=== PATIENT | female | born 1955 | race Caucasian/White ===

== ENCOUNTER → 2016-12-11 | Day surgery (SDC) | payer OTHER ==
[2016-12-03 13:19] VITALS: BMI 29.0
[~2016-12-11] VITALS: Ht 165.1 cm; Wt 79.5 kg
[~2016-12-11] MED LIST: CETI10TA84 PO; CHOL1TAB42 PO; DEXL30CA5 PO; DOMPERIDONE 10MG PO; HYDR-3124 PO; LACT10CA3 PO; MONT1TAB5 PO; PYRI100T4 PO; SODIUM CHLORIDE 0.9% 500ML 500 ML IV ONE
[2016-12-11 11:23] VITALS: Ht 165.1 cm; Wt 79.5 kg
--- NOTE | 2016-12-11 12:22 | Endo History and Physical ---
History & Physical Date of Service: Dec 11, 2016. Chief Complaint: ESOPHAGEAL VARICES Referring Physician: DR. CALDWELL History of Present Illness 61 yo CF who presents for EGD secondary to esophageal varices. Past Surgical History Hx Cardiac Surgery: No Hx Internal Defibrillator: No Hx Pacemaker: No Hx Abdominal Surgery: Yes (JIN) Hx of Implantable Prosthesis: No Hx Post-Op Nausea and Vomiting: Yes Hx Cancer Surgery: No Hx Thoracic Surgery: Yes (TUMOR REMOVAL FROM RT LUNG (BENIGN)) Hx Orthopedic: No Hx Urinary Tract Surgery: No Family History None Social History Smoking Status: Never Smoker Hx Substance Use: No Hx Alcohol Use: No Allergies Coded Allergies: Amoxicillin (Verified Allergy, Unknown, "BAD FOR LIVER BECAUSE I HAVE LIVER PROBLEMS", 12/03/16) Clavulanic Acid (Verified Allergy, Unknown, "BAD FOR LIVER BECAUSE I HAVE LIVER PROBLEMS", 12/03/16) Methotrexate (Verified Allergy, Unknown, "BAD FOR MY LIVER BECAUSE I HAVE LIVER PROBLEMS", 12/03/16) Sulfamethoxazole w/Trimethoprim (Verified Allergy, Unknown, GI UPSET, 12/03) Fentanyl (Verified Adverse Reaction, Mild, "GETS SICK", 12/03/16) Adhesives (Verified Adverse Reaction, Unknown, ADHESIVE TAPE = REDNESS, ) Codeine (Verified Adverse Reaction, Unknown, GI UPSET, 12/03/16) Pseudoephedrine (Verified Adverse Reaction, Unknown, IRRITABILITY, 12/03/16 ) Uncoded Allergies: FENTANY (Allergy, Mild, NAUSE/VOMITING/UPSET STOMACH, 12/11/16) Current Medications Reported Home Medications Medications Dose Route/Sig Max Daily Dose Days Date Category Atarax (Hydroxyzine Hcl) 25 Mg Tab 25 Mg PO HS 12/03/16 Reported Vitamin D (Cholecalciferol) 5,000 Unit Tab 1 Tab PO 3XWK 12/03/16 Reported Culturelle (Lactobacillus-Inulin) 1 Cap Cap 1 Cap PO QAM 12/03/16 Reported Dexilant (Dexlansoprazole) 30 Mg Cap 30 Mg PO QAM 05/13/13 Reported Montelukast Sodium 10 Mg Tab 10 Mg PO HS 04/22/13 Reported Zyrtec (Cetirizine HCl) 10 Mg Tab 10 Mg PO QAM 04/22/13 Reported Vitamin B6 (Pyridoxine HCl) 100 Mg Tab 50 Mg PO QPM 03/09/12 Reported [Domperidone 10MG] 10 Mg PO BID TO TID 03/09/12 Reported Vital Signs Weight (Kilograms): 79.55 Height (Feet): 5 Height (Inches): 5 Date Time Temp Pulse Resp B/P Pulse Ox O2 Delivery O2 Flow Rate FiO2 12/11/16 11:29 36.7 84 18 123/71 97 Room Air Physical Exam General Appearance: WD/WN, no apparent distress Respiratory/Chest: Auscultation: breath sounds normal Cardiovascular: Heart Auscultation: RRR Abdomen: Bowel Sounds: normal Inspection & Palpation: soft, non-distended, no tenderness, guarding & rebound Assessment and Plan Assessment: 61 yo CF who presents for EGD secondary to esophageal varices. Plan: Proceed with EGD.
--- NOTE | 2016-12-11 12:49 | Discharge Instructions ---
Endoscopy Patient Instructions Date / Procedure(s) Performed Dec 11, 2016. EGD Allergy Information Coded Allergies: Amoxicillin (Verified Allergy, Unknown, "BAD FOR LIVER BECAUSE I HAVE LIVER PROBLEMS", 12/03/16) Clavulanic Acid (Verified Allergy, Unknown, "BAD FOR LIVER BECAUSE I HAVE LIVER PROBLEMS", 12/03/16) Methotrexate (Verified Allergy, Unknown, "BAD FOR MY LIVER BECAUSE I HAVE LIVER PROBLEMS", 12/03/16) Sulfamethoxazole w/Trimethoprim (Verified Allergy, Unknown, GI UPSET, 12/03) Fentanyl (Verified Adverse Reaction, Mild, "GETS SICK", 12/03/16) Adhesives (Verified Adverse Reaction, Unknown, ADHESIVE TAPE = REDNESS, ) Codeine (Verified Adverse Reaction, Unknown, GI UPSET, 12/03/16) Pseudoephedrine (Verified Adverse Reaction, Unknown, IRRITABILITY, 12/03/16 ) Uncoded Allergies: FENTANY (Allergy, Mild, NAUSE/VOMITING/UPSET STOMACH, 12/11/16) Discharge Date / Findings Dec 11, 2016. Gastric polyps Hiatal hernia Medication Instructions OK to resume all medications today as prescribed Reported Home Medications Medications Dose Route/Sig Max Daily Dose Days Date Category Atarax (Hydroxyzine Hcl) 25 Mg Tab 25 Mg PO HS 12/03/16 Reported Vitamin D (Cholecalciferol) 5,000 Unit Tab 1 Tab PO 3XWK 12/03/16 Reported Culturelle (Lactobacillus-Inulin) 1 Cap Cap 1 Cap PO QAM 12/03/16 Reported Dexilant (Dexlansoprazole) 30 Mg Cap 30 Mg PO QAM 05/13/13 Reported Montelukast Sodium 10 Mg Tab 10 Mg PO HS 04/22/13 Reported Zyrtec (Cetirizine HCl) 10 Mg Tab 10 Mg PO QAM 04/22/13 Reported Vitamin B6 (Pyridoxine HCl) 100 Mg Tab 50 Mg PO QPM 03/09/12 Reported [Domperidone 10MG] 10 Mg PO BID TO TID 03/09/12 Reported Provider Instructions Activity Restrictions - No exercising or heavy lifting for 24 hours. - Do not drink alcohol the day of the procedure. - Do not drive a car or operate machinery until the day after the procedure. - Do not make any important decisions or sign important papers in 24 hours after the procedure. Following Day: - Return to full activity which may include returning to work/school. Diet Start your diet with liquids and light foods (jello, soup, juice, toast). Then eat your usual diet if not nauseated. Treatment For Common After Affects For mild abdominal pain, bloating, or excessive gas: - Rest - Eat lightly - Lie on right side Follow-Up Information Follow-up with DR. CALDWELL as scheduled Anesthesia Information What You Should Know You have had a procedure that required some medicine to reduce anxiety and discomfort. This treatment is called moderate sedation. After receiving the treatment, you may be sleepy, but you will be able to breathe on your own. The effects of the treatment may last for several hours. Follow these instructions along with Activity/Diet recommendations noted above: * Do NOT do anything where dizziness or clumsiness would be dangerous. * Rest quietly at home today, then you can be up and about tomorrow. * Have a responsible person stay with you the rest of today. * You may have had an I.V. today. If so, you may take the dressing off later today. Recommendations Call your doctor if: * Trouble breathing * Continuous vomiting for more than 24 hours * Temperature above 101 degrees * Severe abdominal pain or bloating * Pain not relieved by pain medicine ordered * There is increased drainage or redness from any incision * A large amount of rectal bleeding greater than 2-3 tablespoons. (If you had a polyp/s removed or have hemorrhoids, a small amount of blood - from the rectum is to be expected.) * You have any unanswered questions or concerns. IN THE EVENT OF A SERIOUS EMERGENCY, GO TO THE NEAREST EMERGENCY ROOM Your discharge instructions were prepared by provider Ghanshyam Knutson. Patient Instructions Signature Page Judy Orellana Patient (or Guardian) Signature/Date: I have read and understand the instructions given to me by my caregivers. Caregiver/RN/Doctor Signature/Date: The above-named patient and/or guardian has received patient instructions on this date. + Original Patient Signature Page (only) stays with chart. Please make copy for patient.
[2016-12-11 13:06] VITALS: BP 114/56; PULSE 82; O2SAT 99
--- NOTE | 2016-12-11 13:52 | GI REPORT ---
Procedure Date: 12/11/2016 12:19 PM THIS REPORT HAS BEEN AMENDED Addendum Number: 1 Addendum Date: 12/24/2016 2:25:07 PM No specimens were obtained during this procedure, and therefore, no pathology is pending. Procedure: Upper GI endoscopy Indications: Cirrhosis with suspected esophageal varices Medicines: Monitored Anesthesia Care Complications: No immediate complications. Estimated Blood Loss: Estimated blood loss: none. Procedure: Pre-Anesthesia Assessment: - Prior to the procedure, a History and Physical was performed, and patient medications and allergies were reviewed. The patient's tolerance of previous anesthesia was also reviewed. The risks and benefits of the procedure and the sedation options and risks were discussed with the patient. All questions were answered, and informed consent was obtained. Prior Anticoagulants: The patient has taken no previous anticoagulant or antiplatelet agents. ASA Grade Assessment: III - A patient with severe systemic disease. After reviewing the risks and benefits, the patient was deemed in satisfactory condition to undergo the procedure. After obtaining informed consent, the endoscope was passed under direct vision. Throughout the procedure, the patient's blood pressure, pulse, and oxygen saturations were monitored continuously. The Scope was introduced through the mouth, and advanced to the second part of duodenum. The upper GI endoscopy was accomplished without difficulty. The patient tolerated the procedure well. Findings: The esophagus was normal. A small hiatus hernia was present. Multiple 3 to 7 mm sessile polyps with no stigmata of recent bleeding were found in the gastric fundus. The examined duodenum was normal. Impression: - Normal esophagus. - Small hiatus hernia. - Multiple gastric polyps. - Normal examined duodenum. - No specimens collected. Recommendation: - Resume previous diet. - Continue present medications. - Await pathology results. - Return to primary care physician as previously scheduled. Ghanshyam Knutson, DO 12/11/2016 1:52:04 PM This report has been signed electronically. Note Initiated On: 12/11/2016 12:19 PM I attest to the content of the Intraoperative Record and orders documented therein, exceptions below Ghanshyam Ledbetter Case, DO 12/24/2016 2:25:34 PM This report has been signed electronically.
--- NOTE | 2016-12-11 15:28 | Anesthesiology Progress Note ---
Anesthesia Post Op Note Date & Time Dec 11, 2016 at 15:28 Vital Signs Pain Intensity: 0 Vital Signs Past 12 Hours Date Time Temp Pulse Resp B/P Pulse Ox O2 Delivery O2 Flow Rate FiO2 12/11/16 13:06 82 16 114/56 99 Room Air 12/11/16 12:50 87 16 116/58 99 Room Air 12/11/16 12:40 91 16 116/61 99 Room Air 12/11/16 12:30 99 16 116/58 99 Room Air 12/11/16 11:29 36.7 84 18 123/71 97 Room Air Notes Mental Status: alert / awake / arousable, participated in evaluation Pt Amnestic to Procedure: Yes Nausea / Vomiting: adequately controlled Pain: adequately controlled Airway Patency, RR, SpO2: stable & adequate BP & HR: stable & adequate Hydration State: stable & adequate Anesthetic Complications: no major complications apparent
== END | disposition home or self-care (01) ==
LOC: C.GI 11:00
PROVIDERS: ATTEND Internal Medicine
DX: K74.69 Other cirrhosis of liver (principal); I85.00 Esophageal varices without bleeding; K44.9 Diaphragmatic hernia without obstruction or gangrene; K31.7 Polyp of stomach and duodenum; Z98.890 Other specified postprocedural states; Z88.2 Allergy status to sulfonamides; Z88.5 Allergy status to narcotic agent; Z88.8 Allergy status to other drugs, medicaments and biological substances

== ENCOUNTER → 2016-12-14 | Outpatient (CLI) | payer OTHER ==
[~2016-12-14] MED LIST changes: -SODIUM CHLORIDE 0.9% 500ML 500 ML IV ONE
--- NOTE | 2016-12-14 07:51 | DIAGNOSTIC IMAGING REPORT ---
BILIARY ULTRASOUND CLINICAL HISTORY: Steatohepatitis COMPARISON STUDY: 02/27/2016 FINDINGS: No focal hepatic masses are visualized. There is slight increase in hepatic echogenicity. No focal hepatic masses are visualized. The gallbladder surgically absent. There is no ductal dilatation. The common buttock measures 6 mm. There is no right-sided hydronephrosis. There is a 16 mm cystic lesion within the pancreatic head. IMPRESSION: 1. Surgically absent gallbladder 2. 16 mm cystic lesion within the pancreatic head, similar in size to the prior MRCP study 3. Slight increase in hepatic echogenicity. 4. No evidence of ductal dilatation Electronically signed by: Alex Aguilera M.D. 12/14/2016 7:50 AM Dictated Date/Time: 12/14/2016 7:47 AM
== END | disposition home or self-care (01) ==
LOC: C.ULTR 06:39
PROVIDERS: ATTEND Internal Medicine
DX: K75.81 Nonalcoholic steatohepatitis (NASH) (principal); Z90.49 Acquired absence of other specified parts of digestive tract; K86.2 Cyst of pancreas

== ENCOUNTER → 2017-01-01 | Outpatient (CLI) | payer OTHER ==
--- NOTE | 2017-01-01 07:28 | DIAGNOSTIC IMAGING REPORT ---
CT SCAN OF THE CHEST WITHOUT IV CONTRAST CLINICAL HISTORY: Follow-up carcinoid tumor. COMPARISON STUDY: Chest CT scans dated 11/30/2015, 03/22/2014, and 07/13/2013. TECHNIQUE: CT scan of the thorax was performed from the thoracic inlet to the upper abdomen. Images are reviewed in the axial, sagittal, and coronal planes. IV contrast was not administered for this examination as per the referring clinician. CT DOSE: 295.16 mGy.cm FINDINGS: Thyroid: Imaged portions of the thyroid gland are normal in size and attenuation. Thoracic aorta: The thoracic aorta is normal in caliber and demonstrates standard 3-vessel arch anatomy. Heart: The heart is normal in size and without pericardial effusion. There are scattered coronary artery calcifications. Lungs and pleural spaces: Postoperative changes again seen at the right apex. Trace pleural fluid is noted in the right lung base. This is likely on a postoperative basis. No airspace consolidation is seen typical for pneumonia. There is no left-sided pleural effusion. The trachea and central airways are clear. A tiny calcified granuloma seen at the left apex. There is a 4 mm left upper lobe pulmonary nodule seen on image #210. Mediastinum: There is no mediastinal lymphadenopathy. Ayanna: Not well assessed without IV contrast. Axillae: There is no axillary lymphadenopathy. Upper abdomen: The liver is cirrhotic in morphology. There is enlargement of the left lobe and nodularity of the surface contour. A 12 mm cyst is noted in the right hepatic lobe. Cholecystectomy clips are noted. The spleen is enlarged measuring 15 cm in length. A moderate hiatal hernia is observed. Skeletal structures: The skeletal structures are osteopenic. No lytic or blastic bony lesions are seen. Calcific tendinopathy is noted in the right shoulder. IMPRESSION: 1. There is postoperative change at the right apex with trace pleural fluid at the right lung base. This is similar to previous. 2. No airspace consolidation is seen typical for pneumonia. 3. There is a 4 mm left upper lobe pulmonary nodule. This is similar in appearance dating back to 03/22/2014. No new pulmonary nodules are identified. 4. Cirrhotic liver morphology. Splenomegaly suggests portal hypertension. 5. Additional changes as above. Electronically signed by: Ronaldo Marquez M.D. 01/01/2017 7:27 AM Dictated Date/Time: 01/01/2017 7:15 AM
== END | disposition home or self-care (01) ==
LOC: C.CTS 06:29
PROVIDERS: ATTEND Internal Medicine Pulmonary Disease
DX: C7A.090 Malignant carcinoid tumor of the bronchus and lung (principal); R91.1 Solitary pulmonary nodule; K74.60 Unspecified cirrhosis of liver; R16.1 Splenomegaly, not elsewhere classified

== ENCOUNTER → 2017-03-06 | Outpatient (CLI) | payer OTHER ==
[2017-03-06 10:01] LABS: HEMATOCRIT 41.9 % (37-47); MEAN CELL VOLUME 84.3 fL (80-100); MEAN CORPUSCULAR HEMOGLOBIN 26.8 pg (25-34); MEAN CORPUSCULAR HGB CONC 31.7 g/dl (32-36); MEAN PLATELET VOLUME 9.8 fL (7.4-10.4); PLATELET COUNT 196 K/uL (130-400); RED BLOOD COUNT 4.97 M/uL (4.2-5.4)
[2017-03-06 10:29] LABS: ALT/SGPT 32 U/L (12-78); AST/SGOT 25 U/L (15-37); BLOOD UREA NITROGEN 12 mg/dl (7-18); CALCIUM 9.6 mg/dl (8.5-10.1); CARBON DIOXIDE 29 mmol/L (21-32); CHLORIDE 107 mmol/L (98-107); CREATININE 0.67 mg/dl (0.60-1.20); GLUCOSE 91 mg/dl (70-99); POTASSIUM 4.3 mmol/L (3.5-5.1); SODIUM 143 mmol/L (136-145)
[2017-03-06 10:32] LABS: ALKALINE PHOSPHATASE 114 U/L (45-117)
== END | disposition home or self-care (01) ==
LOC: C.LAB1850 09:03
PROVIDERS: ATTEND Internal Medicine
DX: E55.9 Vitamin D deficiency, unspecified (principal); R76.8 Other specified abnormal immunological findings in serum; K75.81 Nonalcoholic steatohepatitis (NASH)

== ENCOUNTER 2017-03-25 09:05 | Emergency (ER) | payer OTHER ==
[~2017-03-25] VITALS: Ht 165.1 cm; Wt 82.1 kg
[2017-03-25 09:18] VITALS: TEMP 36.3; Ht 165.1 cm; Wt 82.1 kg
[2017-03-25] MEDS ORDERED: ALUMINUM/MAGNESIUM SUSP 30 ML UDC PO STA (09:32)
[2017-03-25] MEDS ORDERED: LIDOCAINE HCL 2% VISC SOLN 20 ML UDC PO STA (09:32)
[2017-03-25 09:54] VITALS: O2SAT 95
[2017-03-25 10:07] LABS: BASO % 0.1 %; BASO ABS # 0.01 K/uL (0-0.2); COMPLETE YES; EOS % 1.2 %; HEMATOCRIT 38.4 % (37-47); IG% 0.3 %; LYMPH % 25.2 %; LYMPH ABS # 1.86 K/uL (1.2-3.4); MEAN CELL VOLUME 82.8 fL (80-100); MEAN CORPUSCULAR HEMOGLOBIN 27.6 pg (25-34); MEAN CORPUSCULAR HGB CONC 33.3 g/dl (32-36); MEAN PLATELET VOLUME 9.5 fL (7.4-10.4); MONO % 5.1 %; NEUT % 68.1 %; PLATELET COUNT 177 K/uL (130-400); RED BLOOD COUNT 4.64 M/uL (4.2-5.4); WHITE BLOOD COUNT 7.38 K/uL (4.8-10.8)
[2017-03-25] MEDS ORDERED: PYRI100T4 PO (10:07)
[2017-03-25 10:17] LABS: PARTIAL THROMBOPLASTIN RATIO 1.2; PROTHROMBIN TIME (PATIENT) 10.5 SECONDS (9.0-12.0)
--- NOTE | 2017-03-25 10:20 | DIAGNOSTIC IMAGING REPORT ---
CHEST 2 VIEWS ROUTINE CLINICAL HISTORY: sob dyspnea COMPARISON STUDY: 09/15/2014 FINDINGS: Chronic colonic atelectasis right base. Chronic elevation right hemidiaphragm. Operative findings consistent with a prior right lower lobectomy. No acute infiltrate. IMPRESSION: Chronic and postoperative change. No acute process. Electronically signed by: Bandar Mabry M.D. 03/25/2017 10:19 AM Dictated Date/Time: 03/25/2017 10:18 AM
[2017-03-25 10:27] LABS: BUN/CREATININE RATIO 16.8 (10-20); CALCIUM 9.4 mg/dl (8.5-10.1); CREATININE 0.75 mg/dl (0.60-1.20); POTASSIUM 3.8 mmol/L (3.5-5.1)
[2017-03-25 10:30] LABS: CKMB/CK RATIO 1.6 (0-3.0)
[2017-03-25 11:04] LABS: POINT OF CARE PRO-BNP 34 pg/ml (0-900); POINT OF CARE TROPONIN I < 0.030 ng/ml (0-0.045)
[2017-03-25 11:13] LABS: URINE APPEARANCE CLEAR (CLEAR); URINE BILIRUBIN NEG (NEG); URINE COLOR YELLOW; URINE NITRITE NEG (NEG); URINE SPECIFIC GRAVITY 1.009 (1.000-1.030); UROBILINOGEN NEG (NEG); ZZUR CULT IF INDIC CLEAN CATCH NO
[2017-03-25 11:14] LABS: MANUAL MICROSCOPIC REQUIRED? NO; REVIEW REQ? NO
--- NOTE | 2017-03-25 12:18 | EMERGENCY ROOM VISIT NOTE ---
History First contact with patient: :22 Chief Complaint: CARDIAC ASSESSMENT Stated Complaint: JAW AND SHOULDER, ARM PAIN History of Present Illness The patient is a 62 year old female who presents to the Emergency Room with complaints of bilateral jaw pain for the past 4 days. The patient also states that she has had some intermittent left shoulder pain and increased reflux for the past 4 days. The patient states she was mainly concerned about the jaw pain. The patient denies any chest pain or shortness of breath. She denies any nausea or pain radiating down her arm or any numbness and tingling. The patient called her family physician today, Dr. Mccloud and was instructed to come to the ER for evaluation. The patient denies any personal or family history of early cardiac disease. The patient denies any history of hypertension, hyperlipidemia. The patient is a nonsmoker. The patient does admit to having TMJ dysfunction. Review of Systems 10 system review was performed and was negative unless stated otherwise history of present illness. Past Medical/Surgical History Liver disease, TMJ Social History Smoking Status: Never Smoker Alcohol Use: none Current/Historical Medications Scheduled Cetirizine (Zyrtec), 10 MG PO QAM Cholecalciferol (Vitamin D), 1 TAB PO 3XWK Dexlansoprazole (Dexilant), 30 MG PO QAM Hydroxyzine Hcl (Atarax), 25 MG PO HS Lactobacillus-Inulin (Culturelle), 1 CAP PO QAM Montelukast Sodium (Montelukast Sodium), 10 MG PO HS Pyridoxine (Vitamin B6), 100 MG PO DAILY [Domperidone 10MG], 10 MG PO BID TO TID Allergies Coded Allergies: Amoxicillin (Verified Allergy, Unknown, "BAD FOR LIVER BECAUSE I HAVE LIVER PROBLEMS", 12/03/16) Clavulanic Acid (Verified Allergy, Unknown, "BAD FOR LIVER BECAUSE I HAVE LIVER PROBLEMS", 12/03/16) Methotrexate (Verified Allergy, Unknown, "BAD FOR MY LIVER BECAUSE I HAVE LIVER PROBLEMS", 12/03/16) Sulfamethoxazole w/Trimethoprim (Verified Allergy, Unknown, GI UPSET, 12/03) Fentanyl (Verified Adverse Reaction, Mild, "GETS SICK", 12/03/16) Adhesives (Verified Adverse Reaction, Unknown, ADHESIVE TAPE = REDNESS, ) Codeine (Verified Adverse Reaction, Unknown, GI UPSET, 12/03/16) Pseudoephedrine (Verified Adverse Reaction, Unknown, IRRITABILITY, 12/03/16 ) Uncoded Allergies: FENTANY (Allergy, Mild, NAUSE/VOMITING/UPSET STOMACH, 12/11/16) Physical Exam Vital Signs Date Time Temp Pulse Resp B/P (MAP) Pulse Ox O2 Delivery O2 Flow Rate FiO2 03/25/17 10:51 96 Room Air 03/25/17 10:45 76 18 112/45 96 Room Air 03/25/17 09:54 95 Room Air 03/25/17 09:50 87 03/25/17 09:18 36.3 92 16 141/85 93 Room Air Physical Exam GENERAL: 62-year-old white female appears in no acute distress. MENTAL Status: Alert and oriented 3. EYES: PERRLA. EOMs intact. MANDIBLE: Nontender to palpation throughout. The patient has palpable popping of bilateral TMJs with opening and closing. NECK: Supple, no lymphadenopathy noted. No carotid bruits noted. LUNGS: Clear auscultation without wheezes rales or rhonchi. CARDIAC: Regular rate and rhythm without murmur. Pulses is full and equal throughout. ABDOMEN: Positive bowel sounds all 4 quadrants. Soft, mild epigastric pain otherwise nontender to palpation without organomegaly or masses. LOWER EXTREMITY is: No cyanosis or edema noted. Calves are nontender to palpation. Medical Decision & Procedures ER Provider Diagnostic Interpretation: CHEST 2 VIEWS ROUTINE CLINICAL HISTORY: sob dyspnea COMPARISON STUDY: 09/15/2014 FINDINGS: Chronic colonic atelectasis right base. Chronic elevation right hemidiaphragm. Operative findings consistent with a prior right lower lobectomy. No acute infiltrate. IMPRESSION: Chronic and postoperative change. No acute process. Electronically signed by: aBndar Mabry M.D. 03/25/2017 10:19 AM Dictated Date/Time: 03/25/2017 10:18 AM Laboratory Results 03/25/17 09:40 Red Blood Count 4.64, Mean Corpuscular Volume 82.8, Mean Corpuscular Hemoglobin 27.6, Mean Corpuscular Hemoglobin Concent 33.3, Mean Platelet Volume 9.5, Neutrophils (%) (Auto) 68.1, Lymphocytes (%) (Auto) 25.2, Monocytes (%) (Auto) 5.1, Eosinophils (%) (Auto) 1.2, Basophils (%) (Auto) 0.1, Neutrophils # (Auto) 5.02, Lymphocytes # (Auto) 1.86, Monocytes # (Auto) 0.38, Eosinophils # (Auto) 0.09, Basophils # (Auto) 0.01 03/25/17 09:40 Test 03/25/17 09:40 03/25/17 09:44 03/25/17 10:55 03/25/17 11:50 White Blood Count 7.38 K/uL (4.8-10.8) Red Blood Count 4.64 M/uL (4.2-5.4) Hemoglobin 12.8 g/dL (12.0-16.0) Hematocrit 38.4 % (37-47) Mean Corpuscular Volume 82.8 fL (80-100) Mean Corpuscular Hemoglobin 27.6 pg (25-34) Mean Corpuscular Hemoglobin Concent 33.3 g/dl (32-36) Platelet Count 177 K/uL (130-400) Mean Platelet Volume 9.5 fL (7.4-10.4) Neutrophils (%) (Auto) 68.1 % Lymphocytes (%) (Auto) 25.2 % Monocytes (%) (Auto) 5.1 % Eosinophils (%) (Auto) 1.2 % Basophils (%) (Auto) 0.1 % Neutrophils # (Auto) 5.02 K/uL (1.4-6.5) Lymphocytes # (Auto) 1.86 K/uL (1.2-3.4) Monocytes # (Auto) 0.38 K/uL (0.11-0.59) Eosinophils # (Auto) 0.09 K/uL (0-0.5) Basophils # (Auto) 0.01 K/uL (0-0.2) RDW Standard Deviation 43.1 fL (36.4-46.3) RDW Coefficient of Variation 14.2 % (11.5-14.5) Immature Granulocyte % (Auto) 0.3 % Immature Granulocyte # (Auto) 0.02 K/uL (0.00-0.02) Prothrombin Time 10.5 SECONDS (9.0-12.0) Prothromb Time International Ratio 1.0 (0.9-1.1) Activated Partial Thromboplast Time 30.8 SECONDS (21.0-31.0) Partial Thromboplastin Ratio 1.2 Anion Gap 7.0 mmol/L (3-11) Est Creatinine Clear Calc Drug Dose 82.3 ml/min Estimated GFR () 99.0 Estimated GFR (Non- 85.4 BUN/Creatinine Ratio 16.8 (10-20) Calcium Level 9.4 mg/dl (8.5-10.1) Total Bilirubin 0.4 mg/dl (0.2-1) Direct Bilirubin 0.1 mg/dl (0-0.2) Aspartate Amino Transf (AST/SGOT) 26 U/L (15-37) Alanine Aminotransferase (ALT/SGPT) 35 U/L (12-78) Alkaline Phosphatase 112 U/L (45-117) Total Creatine Kinase 92 U/L (26-192) Creatine Kinase MB 1.5 ng/ml (0.5-3.6) Creatine Kinase MB Ratio 1.6 (0-3.0) Total Protein 8.1 gm/dl (6.4-8.2) Albumin 4.0 gm/dl (3.4-5.0) Lipase 193 U/L (73-393) KA-Bob-Y-Type Natriuretic Peptide 34 pg/ml (0-900) Urine Color YELLOW Urine Appearance CLEAR (CLEAR) Urine pH 7.0 (4.5-7.5) Urine Specific [place] 1.009 (1.000-1.030) Urine Protein NEG (NEG) Urine Glucose (UA) NEG (NEG) Urine Ketones NEG (NEG) Urine Occult Blood NEG (NEG) Urine Nitrite NEG (NEG) Urine Bilirubin NEG (NEG) Urine Urobilinogen NEG (NEG) Urine Leukocyte Esterase NEG (NEG) Bedside Troponin I < 0.030 ng/ml (0-0.045) Medications Administered Medications (Trade) Dose Ordered Sig/Rafiq Route Start Time Stop Time Status Last Admin Dose Admin Lidocaine HCl (Viscous Lidocaine 2% Soln) 10 ml NOW STAT PO 03/25/17 09:32 03/25/17 09:34 DC 03/25/17 09:46 10 ML Al Hydroxide/Mg Hydroxide (Maalox Susp) 30 ml NOW STAT PO 03/25/17 09:32 03/25/17 09:34 DC 03/25/17 09:46 30 ML ECG Indication: other (jaw pain) Rhythm: normal sinus Findings: no acute ischemic change ED Course The patient was evaluated. EMR was reviewed. Medication list was reviewed. EKG was ordered and interpreted by myself as above without any acute findings. IV access was obtained. The patient was placed on a monitor and continuous pulse ox. CBC and differential, renal profile, CK-MB, coags, LFTs and lipase, pointing care troponin were ordered. Urinalysis was ordered. Chest x-ray was ordered and interpreted by the radiologist myself as above without any acute findings. Patient was given a GI cocktail. The patient's labs are reviewed and were unremarkable. Troponin was 0. The patient was reevaluated and was feeling better except for the jaw pain. A second troponin was drawn 90 minutes from the first troponin and was 0. The patient's case was discussed with Dr. Zamora who agreed with treatment plan. The patient was informed of all results and discharged home in stable condition. Medical Decision Differential diagnosis include TMJ dysfunction, acute OR, GERD, acute cholecystitis, gastritis Impression Primary Impression: Jaw pain Additional Impression: GERD (gastroesophageal reflux disease) Departure Information Dispostion Home / Self-Care Condition GOOD Referrals Pro,Michael Gil M.D. (PCP) Forms IMPORTANT VISIT INFORMATION Patient Instructions [facility] [employer] Additional Instructions Avoid sticky foods or eating foods that you have to eat with a tearing motion such as pizza or sub-sandwiches. Ibuprofen 600 mg every 6 hours with food for pain. If you experience any severe chest pain, shortness of breath return to ER immediately. Follow-up with your family doctor in 2 days for reevaluation and possible referral for further cardiac testing. Problem Qualifiers Additional Impression: GERD (gastroesophageal reflux disease) Esophagitis presence: esophagitis presence not specified Qualified Codes: K21.9 - Gastro-esophageal reflux disease without esophagitis
[2017-03-25 12:45] VITALS: BP 125/62; PULSE 74; O2SAT 96
== END 2017-03-25 12:30 | disposition home or self-care (01) ==
LOC: C.EDB 09:06 → C.EDA 12:30
DX: R68.84 Jaw pain (principal); K21.9 Gastro-esophageal reflux disease without esophagitis; K76.9 Liver disease, unspecified

== ENCOUNTER → 2017-09-30 | Outpatient (CLI) | payer OTHER ==
--- NOTE | 2017-09-30 10:31 | DIAGNOSTIC IMAGING REPORT ---
ABDOMINAL ULTRASOUND, RIGHT UPPER QUADRANT HISTORY: CIRRHOSIS. COMPARISON: Chest CT 01/01/2017. Abdominal ultrasound 12/14/2016. FINDINGS: Pancreas: No significant change in the 1.5 cm cystic lesion at the pancreatic head. No pancreatic duct dilatation. Liver: The liver is echogenic consistent with fatty change. Gallbladder: The gallbladder is surgically absent. CBD: 6 mm. Right kidney: No hydronephrosis. Miscellaneous: Trace right pleural effusion. IMPRESSION: 1. No change in the 1.5 cm cystic lesion within the pancreatic head. 2. Trace right pleural effusion, unchanged. 3. Cholecystectomy. 4. Hepatic steatosis. Electronically signed by: Beka Chacon M.D. 09/30/2017 10:29 AM Dictated Date/Time: 09/30/2017 10:27 AM
== END | disposition home or self-care (01) ==
LOC: C.ULTR 09:49
PROVIDERS: ATTEND Physician Assistant
DX: K74.60 Unspecified cirrhosis of liver (principal)

== ENCOUNTER 2017-10-08 15:20 | Emergency (ER) | payer OTHER ==
[~2017-10-08] VITALS: Ht 165.1 cm; Wt 82.2 kg
[2017-10-08 15:31] VITALS: TEMP 36.7; Ht 165.1 cm; Wt 82.2 kg
[2017-10-08] MEDS ORDERED: METHPOW7 PO (17:21)
--- NOTE | 2017-10-08 17:39 | DIAGNOSTIC IMAGING REPORT ---
CHEST ONE VIEW PORTABLE CLINICAL HISTORY: 62 years-old Female presenting with Evaluate Fever/Sepsis. TECHNIQUE: Portable upright AP view of the chest was obtained. COMPARISON: 03/25/2017. FINDINGS: Atherosclerosis of the aortic arch. Cardiac silhouette normal in size. Chronic elevation of the right hemidiaphragm. A suture margin is noted at the right apex. Minimal bibasilar bandlike opacities. No large effusion or pneumothorax. Degenerative changes of the thoracic spine. Calcification superior to the bilateral humeral heads could suggest calcific tendinitis. Cholecystectomy clips noted. IMPRESSION: 1. Postsurgical changes of the right lung and minimal bibasilar atelectasis. No acute cardiopulmonary disease. Electronically signed by: Wilman Man M.D. 10/08/2017 5:38 PM Dictated Date/Time: 10/08/2017 5:37 PM
[2017-10-08 18:01] LABS: BASO % 0.3 %; BASO ABS # 0.02 K/uL (0-0.2); COMPLETE YES; EOS % 1.8 %; IG% 0.3 %; LYMPH % 27.7 %; LYMPH ABS # 2.18 K/uL (1.2-3.4); MEAN CELL VOLUME 84.4 fL (80-100); MEAN CORPUSCULAR HEMOGLOBIN 28.9 pg (25-34); MEAN CORPUSCULAR HGB CONC 34.2 g/dl (32-36); MEAN PLATELET VOLUME 9.8 fL (7.4-10.4); MONO % 7.7 %; NEUT % 62.2 %; PLATELET COUNT 170 K/uL (130-400); WHITE BLOOD COUNT 7.88 K/uL (4.8-10.8)
[2017-10-08 18:16] LABS: PARTIAL THROMBOPLASTIN RATIO 1.1; PROTHROMBIN TIME (PATIENT) 10.1 SECONDS (9.0-12.0)
[2017-10-08 18:18] LABS: ALT/SGPT 42 U/L (12-78); AST/SGOT 31 U/L (15-37); BLOOD UREA NITROGEN 13 mg/dl (7-18); BUN/CREATININE RATIO 17.6 (10-20); CALCIUM 9.1 mg/dl (8.5-10.1); CARBON DIOXIDE 27 mmol/L (21-32); CHLORIDE 106 mmol/L (98-107); CREATININE 0.73 mg/dl (0.60-1.20); GLUCOSE 77 mg/dl (70-99); POTASSIUM 3.7 mmol/L (3.5-5.1); SODIUM 139 mmol/L (136-145)
[2017-10-08 18:23] LABS: ALKALINE PHOSPHATASE 102 U/L (45-117); CKMB/CK RATIO 1.9 (0-3.0)
--- NOTE | 2017-10-08 18:54 | EMERGENCY ROOM VISIT NOTE ---
History Report prepared by Yunior: Roel Lindsey Under the Supervision of: Dr. Dariusz Escalante D.O. First contact with patient: 16:49 Chief Complaint: ARM PAIN Stated Complaint: LEFT ARM PAIN History of Present Illness The patient is a 62 year old female who presents to the Emergency Room with complaints of worsening left arm pain that radiates to her neck and lower back beginning five days ago. The patient states she has also been experiencing mild pain in her left lower chest and epigastric region. She reports it feels like indigestion. The patient notes she tried acetaminophen, but it did not help. She states she has been cleaning more than normal, but she does not think that is the cause. The patient reports nothing makes it worse. She notes she gets short of breath after walking up three flights of stairs, but this is not new. The patient states she has a history of liver disease and is close to having cirrhosis. Source of History: patient Onset: five days ago Position: arm (left) Timing: worsening Associated Symptoms: + neck pain, + chest pain, + back pain Review of Systems See HPI for pertinent positives & negatives. A total of 10 systems reviewed and were otherwise negative. Past Medical & Surgical Medical Problems: (1) Asthma (2) Skin problem (3) Stomach problems Family History Diabetes mellitus Gallbladder disease Heart disease Hypertension Kidney disease Kidney stones Social History Smoking Status: Never Smoker Smokeless Tobacco Use: No Alcohol Use: none Marital Status: Housing Status: lives with significant other Occupation Status: employed Current/Historical Medications Scheduled Cetirizine (Zyrtec), 10 MG PO QAM Cholecalciferol (Vitamin D), 5,000 INTER.UNIT PO 3XWK Dexlansoprazole (Dexilant), 30 MG PO QAM Hydroxyzine Hcl (Atarax), 25 MG PO HS Lactobacillus-Inulin (Culturelle), 1 CAP PO QAM Methylcellulose (Laxative) (Citrucel Fiber Laxative), 1 DOSE PO DAILY Montelukast Sodium (Montelukast Sodium), 10 MG PO HS Pyridoxine (Vitamin B6), 100 MG PO DAILY [Domperidone 10MG], 10 MG PO 2-3 X DAILY Allergies Coded Allergies: Amoxicillin (Verified Allergy, Unknown, "BAD FOR LIVER BECAUSE I HAVE LIVER PROBLEMS", 10/08/17) Clavulanic Acid (Verified Allergy, Unknown, "BAD FOR LIVER BECAUSE I HAVE LIVER PROBLEMS", 10/08/17) Methotrexate (Verified Allergy, Unknown, "BAD FOR MY LIVER BECAUSE I HAVE LIVER PROBLEMS", 10/08/17) Sulfamethoxazole w/Trimethoprim (Verified Allergy, Unknown, GI UPSET, ) Fentanyl (Verified Adverse Reaction, Mild, "GETS SICK", 10/08/17) Adhesives (Verified Adverse Reaction, Unknown, ADHESIVE TAPE = REDNESS, ) Codeine (Verified Adverse Reaction, Unknown, GI UPSET, 10/08/17) Pseudoephedrine (Verified Adverse Reaction, Unknown, IRRITABILITY, ) Physical Exam Vital Signs Date Time Temp Pulse Resp B/P (MAP) Pulse Ox O2 Delivery O2 Flow Rate FiO2 10/08/17 19:32 78 18 122/78 98 10/08/17 18:23 75 18 126/73 97 Room Air 10/08/17 15:31 36.7 90 18 165/81 96 Room Air Physical Exam CONSTITUTIONAL/VITAL SIGNS: Reviewed / noted above. GENERAL: Non-toxic in appearance. INTEGUMENTARY: Warm, dry, and [place]. HEAD: Normocephalic. EYES: without scleral icterus or trauma. ENT/OROPHARYNX: clear and moist. LYMPHADENOPATHY/NECK: Is supple without lymphadenopathy or meningismus. RESPIRATORY: Lungs clear and equal. CARDIOVASCULAR: Regular rate and rhythm. GI/ABDOMEN: Soft and nontender. No organomegaly or pulsatile mass. No rebound or guarding. Normal bowel sounds. EXTREMITIES: Warm and well perfused. Mild left shoulder discomfort with movement against resistance. BACK: No CVA tenderness. NEUROLOGICAL: Intact without focal deficits. PSYCHIATRIC: normal affect. MUSCULOSKELETAL: Normally developed with good muscle tone. Medical Decision & Procedures ER Provider Diagnostic Interpretation: X ray results and stated below per my interpretation and radiology interpretation. CHEST ONE VIEW PORTABLE CLINICAL HISTORY: 62 years-old Female presenting with Evaluate Fever/Sepsis. TECHNIQUE: Portable upright AP view of the chest was obtained. COMPARISON: 03/25/2017. FINDINGS: Atherosclerosis of the aortic arch. Cardiac silhouette normal in size. Chronic elevation of the right hemidiaphragm. A suture margin is noted at the right apex. Minimal bibasilar bandlike opacities. No large effusion or pneumothorax. Degenerative changes of the thoracic spine. Calcification superior to the bilateral humeral heads could suggest calcific tendinitis. Cholecystectomy clips noted. IMPRESSION: 1. Postsurgical changes of the right lung and minimal bibasilar atelectasis. No acute cardiopulmonary disease. Electronically signed by: Wilman Man M.D. 10/08/2017 5:38 PM Dictated Date/Time: 10/08/2017 5:37 PM Laboratory Results 10/08/17 17:40 Red Blood Count 4.50, Mean Corpuscular Volume 84.4, Mean Corpuscular Hemoglobin 28.9, Mean Corpuscular Hemoglobin Concent 34.2, Mean Platelet Volume 9.8, Neutrophils (%) (Auto) 62.2, Lymphocytes (%) (Auto) 27.7, Monocytes (%) (Auto) 7.7, Eosinophils (%) (Auto) 1.8, Basophils (%) (Auto) 0.3, Neutrophils # (Auto) 4.91, Lymphocytes # (Auto) 2.18, Monocytes # (Auto) 0.61, Eosinophils # (Auto) 0.14, Basophils # (Auto) 0.02 10/08/17 17:40 Test 10/08/17 17:40 White Blood Count 7.88 K/uL (4.8-10.8) Red Blood Count 4.50 M/uL (4.2-5.4) Hemoglobin 13.0 g/dL (12.0-16.0) Hematocrit 38.0 % (37-47) Mean Corpuscular Volume 84.4 fL (80-100) Mean Corpuscular Hemoglobin 28.9 pg (25-34) Mean Corpuscular Hemoglobin Concent 34.2 g/dl (32-36) Platelet Count 170 K/uL (130-400) Mean Platelet Volume 9.8 fL (7.4-10.4) Neutrophils (%) (Auto) 62.2 % Lymphocytes (%) (Auto) 27.7 % Monocytes (%) (Auto) 7.7 % Eosinophils (%) (Auto) 1.8 % Basophils (%) (Auto) 0.3 % Neutrophils # (Auto) 4.91 K/uL (1.4-6.5) Lymphocytes # (Auto) 2.18 K/uL (1.2-3.4) Monocytes # (Auto) 0.61 K/uL (0.11-0.59) Eosinophils # (Auto) 0.14 K/uL (0-0.5) Basophils # (Auto) 0.02 K/uL (0-0.2) RDW Standard Deviation 45.9 fL (36.4-46.3) RDW Coefficient of Variation 14.8 % (11.5-14.5) Immature Granulocyte % (Auto) 0.3 % Immature Granulocyte # (Auto) 0.02 K/uL (0.00-0.02) Prothrombin Time 10.1 SECONDS (9.0-12.0) Prothromb Time International Ratio 1.0 (0.9-1.1) Activated Partial Thromboplast Time 29.2 SECONDS (21.0-31.0) Partial Thromboplastin Ratio 1.1 Anion Gap 6.0 mmol/L (3-11) Est Creatinine Clear Calc Drug Dose 84.6 ml/min Estimated GFR () 102.3 Estimated GFR (Non- 88.3 BUN/Creatinine Ratio 17.6 (10-20) Calcium Level 9.1 mg/dl (8.5-10.1) Total Bilirubin 0.3 mg/dl (0.2-1) Direct Bilirubin 0.1 mg/dl (0-0.2) Aspartate Amino Transf (AST/SGOT) 31 U/L (15-37) Alanine Aminotransferase (ALT/SGPT) 42 U/L (12-78) Alkaline Phosphatase 102 U/L (45-117) Total Creatine Kinase 78 U/L (26-192) Creatine Kinase MB 1.5 ng/ml (0.5-3.6) Creatine Kinase MB Ratio 1.9 (0-3.0) Troponin I < 0.015 ng/ml (0-0.045) Total Protein 8.2 gm/dl (6.4-8.2) Albumin 3.9 gm/dl (3.4-5.0) Lipase 187 U/L (73-393) Laboratory results as stated above per my review. ECG Indication: chest pain Rate (beats per minute): 80 Rhythm: normal sinus Findings: no acute ischemic change, no ectopy ED Course 1651: Previous medical records were reviewed. The patient was evaluated in room A03. A complete history and physical examination was performed. 1856: On reevaluation, the patient is resting comfortably. I discussed the results and findings with the patient. She verbalized agreement of the treatment plan. The patient was discharged home. Medical Decision The differential was considered includes acute myocardial infarction, acute coronary syndrome, myocarditis, pericarditis, pericardial effusions /tamponad, esophageal perforation, thoracic aortic dissection, pulmonary embolism, pneumonia, pneumothorax, pancreatitis, shingles, acute cholecystitis, perforated abdominal viscus. This is a 62-year-old female who presents to the ED with a chief complaint of left shoulder pain and small amount of left lateral chest wall pain. She states that she has been doing a little more cleaning over the holidays. She denies any exertional chest pains or shortness of breath. The patient states that she has taken ibuprofen for her symptoms without improvement. She has had the symptoms for about a week. Her initial blood pressure was elevated but her second blood pressure was normal. Her physical exam was normal with exception of some increased discomfort with certain movements against resistance of the left shoulder. The patient's blood work including a CBC and complete metabolic panel were normal. Troponin was negative and a chest x-ray did not show acute disease. An EKG shows a normal sinus rhythm at a rate of 80 without ectopy or acute injury. The patient was told results. She is felt to be stable for discharge. I suspect that her left shoulder pain is related to musculoskeletal causes. Medication Reconcilliation Current Medication List: was personally reviewed by me Blood Pressure Screening Patient's blood pressure: Normal blood pressure Blood pressure disposition: Did not require urgent referral Impression Primary Impression: Left shoulder pain Scribe Attestation The scribe's documentation has been prepared under my direction and personally reviewed by me in its entirety. I confirm that the note above accurately reflects all work, treatment, procedures, and medical decision making performed by me. Departure Information Dispostion Home / Self-Care Referrals Michael Mccloud M.D. (PCP) Forms HOME CARE DOCUMENTATION FORM, IMPORTANT VISIT INFORMATION Patient Instructions My [facility] Additional Instructions Follow-up with your doctor for further care and evaluation in 1-2 days. Return to the emergency department for worsening or new symptoms or any concerns. You have been examined and treated today on an emergency basis only. This is not a substitute for, or an effort to provide, complete comprehensive medical care. It is impossible to recognize and treat all injuries or illnesses in a single emergency department visit. It is therefore important that you follow up closely with your doctor. Call as soon as possible for an appointment.
[2017-10-08 19:32] VITALS: BP 122/78; PULSE 78; O2SAT 98
== END 2017-10-08 19:15 | disposition home or self-care (01) ==
LOC: C.EDB 15:22 → C.EDA 19:15
DX: M25.512 Pain in left shoulder (principal); J45.909 Unspecified asthma, uncomplicated; Z83.3 Family history of diabetes mellitus; Z83.79 Family history of other diseases of the digestive system; Z82.49 Family history of ischemic heart disease and other diseases of the circulatory system; Z84.1 Family history of disorders of kidney and ureter; Z79.899 Other long term (current) drug therapy

== ENCOUNTER → 2017-10-09 | Outpatient (CLI) | payer OTHER ==
[~2017-10-09] MED LIST changes: +METHPOW7 PO
--- NOTE | 2017-10-10 13:46 | MAMMOGRAPHY REPORT ---
BILATERAL DIGITAL SCREENING MAMMOGRAM TOMOSYNTHESIS WITH CAD: 10/09/2017 CLINICAL HISTORY: Routine screening. Patient has no complaints. TECHNIQUE: Breast tomosynthesis in addition to standard 2D mammography was performed. Current study was also evaluated with a Computer Aided Detection (CAD) system. COMPARISON: Comparison is made to exams dated: 10/04/2016 mammogram, 10/03/2015 mammogram, 4 mammogram, 09/29/2013 mammogram, 09/24/2012 mammogram, and 09/13/2010 mammogram - [facility]. BREAST COMPOSITION: The tissue of both breasts is almost entirely fatty. FINDINGS: The glandular pattern is unchanged. No developing mass, architectural distortion or cluste r of suspicious microcalcifications is seen. IMPRESSION: ACR BI-RADS CATEGORY 2: BENIGN There is no mammographic evidence of malignancy. A 1 year screening mammogram is recommended. The pa tient will receive written notification of the results. Approximately 10% of breast cancers are not detected with mammography. A negative mammographic report should not delay biopsy if a clinically suggestive mass is present. Yajaira Moran M.D. ay/:10/09/2017 16:23:27 Retirement Consultant: Nuzhat RIGGS(Roselyn)(Robert), [facility] letter sent: Normal 1/2 BI-RADS Code: ACR BI-RADS Category 2: Benign
== END | disposition home or self-care (01) ==
LOC: C.MAMM 15:56
PROVIDERS: ATTEND Obstetrics & Gynecology
DX: Z12.31 Encounter for screening mammogram for malignant neoplasm of breast (principal)

== ENCOUNTER → 2018-02-10 | Outpatient (CLI) | payer OTHER ==
--- NOTE | 2018-02-10 08:45 | DIAGNOSTIC IMAGING REPORT ---
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 TECHNIQUE: Multiaxial CT images of the chest were performed without contrast. A dose lowering technique was utilized adhering to the principles of ALARA. COMPARISON: Chest CT 01/01/2017 and 03/22/2014. FINDINGS: No dominant thyroid nodule or pathologic adenopathy identified. The heart is normal in size without pericardial effusion. Coronary arterial calcifications are noted. Thoracic aorta appears to be normal in both course and caliber. Unopacified pulmonary arterial tree is unremarkable. Postoperative changes about the right lung apex and right lung base redemonstrated with unchanged areas of pleural-parenchymal scarring. Trace fluid of the right lung base is also unchanged. 3 mm nodule abutting the minor fissure on the right, image 121 series 4 suggests area of fissural lymph node and appears unchanged from comparison. 4 mm solid nodule of the lingula on image 182 series 4 is also unchanged. 2 mm calcified granuloma of the left lung apex. No new or enlarging pulmonary nodules are identified. The central airways are patent. Prior cholecystectomy. Cirrhotic morphology of the liver with splenomegaly redemonstrated. The spleen measures up to 14 cm in length. No acute process of the imaged upper abdomen. Small sliding-type hiatal hernia. 1.2 cm cyst of the right hepatic lobe is unchanged. Bones appear intact. Remote appearing compression deformity of the T7 vertebral body. IMPRESSION: 1. No acute intrathoracic abnormality identified. 2. Postoperative changes about the right lung redemonstrated with trace amount of pleural fluid at the level of the right lung base. 3. Unchanged size and appearance of the solid 4 mm pulmonary nodule of the lingula, stable dating back to 03/22/2014. No new pulmonary nodules are identified. 4. No pathologic adenopathy. 5. Additional findings as above. Electronically signed by: Patrick Pina M.D. 02/10/2018 8:44 AM Dictated Date/Time: 02/10/2018 8:32 AM
== END | disposition home or self-care (01) ==
LOC: C.CTS 08:15
PROVIDERS: ATTEND Internal Medicine Pulmonary Disease
DX: C7A.090 Malignant carcinoid tumor of the bronchus and lung (principal)

== ENCOUNTER 2022-01-29 15:21 | Inpatient (IN) ==
--- NOTE | 2022-01-29 15:33 | Emergency Department Note ---
Impression & Plan Back pain, Fall, Compression fx, lumbar spine ED Provider Note NAME: CHRISTIN CERVANTES AGE: 66 SEX: F : 1955 ARRIVES VIA: Ambulance INFORMANT: Patient ED PROVIDER(S): Jos Conklin DO CHIEF COMPLAINT: Fall with back pain HPI: Patient is a 66-year-old female who presents to the ER following a mechanical fall. Patient notes that she was walking down steps and fell down 3 steps on her buttocks. Did not hit her head or neck. No head or neck pain. Denies any blood thinners. No chest pain or belly pain. No other back pain other than right lower lumbar paraspinal back pain. Denies any weakness or numbness in the legs. No dysuria, urgency, or frequency. No other exacerbating or remitting factors. ROS: See above HPI for pertinent positives & negatives. A total of 10 systems reviewed and were otherwise negative. PAST MEDICAL HISTORY:See Below PAST SURGICAL HISTORY:See Below FAMILY HISTORY:See Below SOCIAL HISTORY:See Below HOME MEDICATIONS:See Below ALLERGIES:See Below VITALS:See Below PHYSICAL EXAMINATION: GENERAL: alert, well appearing, well nourished, no distress, non-toxic HEAD: normal cephalic, atraumatic EYE EXAM: normal conjunctiva, PERRL and EOM's grossly intact OROPHARYNX: no exudate, no erythema, lips, buccal mucosa, and tongue normal and mucous membranes are moist NECK: supple, no nuchal rigidity, no adenopathy, non-tender CHEST: stable to compression anteriorly and posteriorly LUNGS: clear to auscultation. Normal chest wall mechanics HEART: no murmurs, S1 normal and S2 normal ABDOMEN: abdomen soft, non-tender, normo-active bowel sounds, no masses, no rebound or guarding. PELVIS: stable to compression anteriorly and posteriorly BACK: Back is symmetrical on inspection and there is no deformity, no midline tenderness, no CVA tenderness. Tenderness in the right lower lumbar paraspinal region tracking into the right SI joint UPPER EXTREMITIES: full active and passive range of motion of all joints without tenderness to palpation LOWER EXTREMITIES: full active and passive range of motion of all joints without tenderness to palpation NEURO EXAM: Normal sensorium, cranial nerves II-XII grossly intact, normal s peech, no gross weakness of arms, no gross weakness of legs. GCS: 15. MEDICAL DECISION MAKING: Patient is a six 6-year-[age] female who presents ER following mechanical fall when she slipped on snow/ice. IV was established blood was obtained. Labs show no significant leukocytosis or anemia. BMP along with LFTs bilirubin lipase is unremarkable. Covid was negative. X-rays of lumbar spine and pelvis showed no acute fractures. She had persistent pain. She is given morphine. CTs of the belly and lumbar spine show small endplate compression at L2. Patient was antoine ble to get up and walk secondary to pain. She was updated bedside. Discussed with Rosa Abel for further evaluation for pain control as this is nonsurgical. Discussed with Pt concerning signs and symptoms to watch out for. Pt was instructed to follow up with their PCP and discussed with the patient their option to return to the ED at anytime for persistent or worsening symptoms. The appropriate anticipatory guidance and out-patient management, including indications for return to the emergency department, were explained at length to the patient and understood. Triage Nursing notes reviewed. Limited review of prior medical records performed Vital Signs: reviewed and remarkable for no significant abnormalities Differential diagnosis: Differential diagnoses includes but is not limited to lumbar radiculopathy, kidney stone, muscle strain, facture, cauda equina, mass, and disc herniation. ER treatment provided: See below Diagnostics interpreted by me: ECG: none Cardiac Monitoring: An order was placed for continuous cardiac monitoring. The monitor shows a rate of 78 with sinus rhythm. Laboratory studies: As stated above and show below. Imaging studies: CT of the abdomen pelvis and lumbar spine as described above X-rays of the pelvis and lumbar spine were negative Consultation(s): Discussed with Rosa Abel for further evaluation Procedures: none Critical Care: None Past Med/Surg History Medical History Asthma COUGH VARIANT; rare use of PRN inhaler Cirrhosis BORDERLINE. NON ALCOHOLIC.; follows with [facility] GERD (gastroesophageal reflux disease) Hiatal hernia History of malignant carcinoid tumor of bronchus and lung 2013 - treated surgically; no chemo/radiation History of supraventricular tachycardia s/p ablation Surgical History History of bowel resection r/t diverticular disease History of bronchoscopy RIGHT LOWER LOBE BIOPSY History of cardiac radiofrequency ablation [facility]. NO ISSUES SINCE. History of cholecystectomy LAP History of colonoscopy History of esophagogastroduodenoscopy (EGD) History of lobectomy of lung RIGHT (2012) AT [facility] History of oral surgery History of tonsillectomy Nausea and vomiting after administration of anesthetic agent S/P excision of lipoma Family History Sister Obesity Asthma Father Diabetes Coronary heart disease Squamous cell carcinoma Hypertension Mother TIA (transient ischemic attack) Breast cancer Hypertension Uterine cancer Family history of reaction to anesthesia difficulty waking Grandfather (Maternal) Parkinson disease Denies family history of Ovarian cancer Prostate cancer Myocardial infarction Colorectal cancer Social History Smoking Status: Never smoker Second Hand Exposure: Yes (CHILDHOOD); Hx Alcohol Use: No Hx Substance Use: No Preferred Language: Central [place] Communication Ability: Effective Visual Impairment: No Limitations Hearing Ability: Normal Statistical Developer Required: No Beliefs That Will Affect Care: None marital status: Current Living Situation: Spouse current occupational status: retired Feels Safe at Home: Yes Childhood Exposure to Second-Hand Smoke: Yes Dental Care, Regularly: Yes Physical Activity Frequency: Does not Exercise Seatbelt Use: always Sunscreen Use: Yes (Ocassionally) Assistive Devices: Contacts and Glasses Allergies Allergies Allergy/AdvReac Type Severity Reaction Status Date / Time codeine Allergy Mild GI UPSET Verified 01/29/22 15:59 sulfamethoxazole Allergy Mild GI UPSET Verified 01/29/22 15:59 trimethoprim Allergy Mild GI UPSET Verified 01/29/22 15:59 amoxicillin Allergy Unknown "BAD FOR Verified 01/29/22 15:59 LIVER BECAUSE I HAVE LIVER PROBLEMS" Bactrim Allergy Unknown GI UPSET Verified 10/08/17 15:30 clavulanic acid Allergy Unknown "BAD FOR Verified 01/29/22 15:59 LIVER BECAUSE I HAVE LIVER PROBLEMS" methotrexate Allergy Unknown "BAD FOR Verified 01/29/22 15:59 MY LIVER BECAUSE I HAVE LIVER PROBLEMS" Methotrexate Analogues Allergy Unknown "told Verified 01/29/22 15:59 never to take d/t liver disease" pseudoephedrine AdvReac Intermediate IRRITABILIT Verified 01/29/22 15:59 Y adhesive AdvReac Mild ADHESIVE Verified 01/29/22 15:59 TAPE = REDNESS fentanyl AdvReac Mild Vomiting Verified 01/29/22 15:59 Home Meds Home Medications Medication Instructions Recorded Confirmed hydroxyzine HCl 25 mg tablet 25 mg PO QID PRN 11/06/18 01/29/22 methylcellulose (with sugar) oral 0.5 tbsp PO QAM 11/06/18 01/29/22 powder (Citrucel (sucrose)) pyridoxine (vitamin B6) 100 mg 100 mg PO HS 11/06/18 01/29/22 tablet (Vitamin B-6) Domperidone 10 mg PO BID 09/15/19 01/29/22 cetirizine 10 mg tablet (Zyrtec) 10 mg PO QAM 09/15/19 01/29/22 cholecalciferol (vitamin D3) 125 5,000 unit PO 3XWK 09/15/19 01/29/22 mcg (5,000 unit) tablet (Vitamin D3) fluocinonide 0.05 % topical cream 1 applic TOPICAL BID PRN 06/14/20 01/29/22 estradiol 1 g VAGINAL 2XWK g 04/26/21 01/29/22 Previous Rx's Medication Instructions Recorded inhalational spacing device #1 ea 08/04/19 (LiteAire MDI Chamber) benzonatate 100 mg capsule 100 mg PO Q8H PRN #90 cap 05/10/20 albuterol sulfate 90 mcg/actuation 2 puff INH Q4H PRN #18 gm 12/06/20 aerosol inhaler (ProAir HFA) montelukast 10 mg tablet 10 mg PO PM #90 tab 04/27/21 clotrimazole-betamethasone 1 1 applic TOPICAL .qhs #45 g 06/09/21 %-0.05 % topical cream diazepam 2 mg tablet 2 mg PO .COMPLEX PRN #2 tab 08/18/21 escitalopram oxalate 10 mg tablet 10 mg PO QAM #90 tab 09/06/21 dexlansoprazole 30 mg 30 mg PO QAM #90 cap 11/13/21 capsule,biphase delayed release (Dexilant) fluticasone furoate 200 1 inh INH QAM #3 inhaler 01/16/22 mcg-vilanterol 25 mcg/dose inhalation powder (Breo Ellipta) Results & Data (ED) Vital Signs Vital Signs - 24 hr 01/29/22 15:10 01/29/22 15:36 01/29/22 15:41 Temperature Temperature Source Pulse Rate 73 Pulse Rate [Right Finger] 89 Respiratory Rate 12 18 Respiratory Effort / Characteristics Non-Labored Spontaneous Respiratory Depth Normal Respiratory Pattern Regular Blood Pressure 142/74 H Blood Pressure [Left Arm] 140/78 Blood Pressure Mean 96 Blood Pressure Mean [Left Arm] 98 Pulse Oximetry 94 95 93 Oxygen Delivery Method Room Air Room Air Sepsis Recent Fever Within 48 Hours No Sepsis New/Unexplained Change in Mental Status N/A Sepsis Action Taken by Nursing No Action Required 01/29/22 16:59 01/29/22 19:00 01/29/22 20:20 Temperature 36.6 C Temperature Source Oral Pulse Rate Pulse Rate [Right Finger] 66 80 72 Respiratory Rate 12 16 18 Respiratory Effort / Characteristics Non-Labored Spontaneous Respiratory Depth Normal Respiratory Pattern Regular Blood Pressure Blood Pressure [Left Arm] 122/65 142/79 H 128/67 Blood Pressure Mean Blood Pressure Mean [Left Arm] 84 100 87 Pulse Oximetry 94 94 98 Oxygen Delivery Method Room Air Room Air Room Air Sepsis Recent Fever Within 48 Hours Sepsis New/Unexplained Change in Mental Status Sepsis Action Taken by Nursing Laboratory Data Result diagrams: 01/29/22 15:19 01/29/22 15:39 Lab Results 01/29/22 01/29/22 01/29/22 Range/Units 15:19 15:39 20:30 WBC 10.03 (4.8-10.8) K/uL RBC 4.67 (4.2-5.4) M/uL Hgb 13.4 (12.0-16.0) g/dL Hct 40.7 (37-47) % MCV 87.2 (80-100) fL MCH 28.7 (25-34) pg MCHC 32.9 (32-36) g/dL RDW Std Deviation 47.8 H (36.4-46.3) fL RDW Coeff of Linda 15.0 H (11.5-14.5) % Plt Count 186 (130-400) K/uL MPV 9.9 (7.4-10.4) fL Immature Gran % (Auto) 0.6 % Neut % (Auto) 71.9 % Lymph % (Auto) 20.6 % Carlisle % (Auto) 5.9 % Eos % (Auto) 0.9 % Baso % (Auto) 0.1 % Neut # (Auto) 7.21 H (1.4-6.5) K/uL Lymph # (Auto) 2.07 (1.2-3.4) K/uL Carlisle # (Auto) 0.59 (0.11-0.59) K/uL Eos # (Auto) 0.09 (0-0.5) K/uL Baso # (Auto) 0.01 (0-0.2) K/uL Immature Gran # (Auto) 0.06 H (0.00-0.02) K/uL Sodium 137 (136-145) mmol/L Potassium 4.4 (3.5-5.1) mmol/L Chloride 105 (98-107) mmol/L Carbon Dioxide 26 (21-32) mmol/L Anion Gap 6 (3-11) BUN 13 (6-23) mg/dl Creatinine 0.69 (0.6-1.2) mg/dl Est Cr Clr Drug Dosing 83.8 ml/min Est GFR ( Amer) 105.1 ml/min Est GFR (Non-Af Amer) 90.7 ml/min BUN/Creatinine Ratio 18.8 (10-20) Glucose 98 (70-99(Fasting)) mg/dl Calcium 9.9 (8.5-10.1) mg/dl Total Bilirubin 0.5 (0.2-1.0) mg/dl AST 53 H (13-39) U/L ALT 37 (7-52) U/L Alkaline Phosphatase 84 (34-104) U/L Total Protein 7.4 (6.0-8.3) gm/dl Albumin 4.3 (3.4-5.0) gm/dl Globulin 3.1 (2.5-4.0) gm/dl Albumin/Globulin Ratio 1.4 (0.9-2) Lipase 38 (11-82) U/L SARS-CoV-2, RNA, NAAT NEGATIVE (NEGATIVE) Administered Medications Lidocaine (Lidocaine 5% 1 Patch) 1 patch TD QPM LETICIA Stop: 02/28/22 20:59 Last Admin: 01/29/22 20:46 Dose: 1 patch Documented by: [id number] Discontinued Medications Acetaminophen (Acetaminophen 325 Mg Tab) 650 mg PO NOW STA Stop: 01/29/22 19:56 Last Admin: 01/29/22 20:19 Dose: 650 mg Documented by: [id number] Ibuprofen (Ibuprofen 600 Mg Tab) 600 mg PO NOW STA Stop: 01/29/22 19:56 Last Admin: 01/29/22 20:20 Dose: 600 mg Documented by: [id number] Ioversol (Optiray 320 100ml) 94 ml IV ONCE ONE Stop: 01/29/22 18:40 Last Admin: 01/29/22 18:40 Dose: 94 ml Documented by: [id number] Morphine Sulfate (Morphine Sulfate 4 Mg/Ml 1 Ml Carp\\Vial) 4 mg IV NOW STA Stop: 01/29/22 16:08 Last Admin: 01/29/22 16:12 Dose: 4 mg Documented by: [id number] Morphine Sulfate (Morphine Sulfate 2 Mg/Ml Carp) 2 mg IV NOW STA Stop: 01/29/22 19:35 Last Admin: 01/29/22 20:19 Dose: 2 mg Documented by: [id number] Ondansetron HCl (Ondansetron Inj 2 Mg/Ml 2 Ml Vial) 4 mg IV NOW STA Stop: 01/29/22 16:08 Last Admin: 01/29/22 16:12 Dose: 4 mg Documented by: [id number] Ondansetron HCl (Ondansetron 4 Mg Od Tab) 4 mg PO NOW STA Stop: 01/29/22 19:59 Last Admin: 01/29/22 20:19 Dose: 4 mg Documented by: [id number] Imaging Data Radiologist's Impression: Hip/Pelvis X-Ray 01/29/22 15:33 XR hip RT 2V w pelvis HISTORY: 66 years-old Female r hip pain acute pain without reported trauma COMPARISON: Radiographs 11/05/2014 TECHNIQUE: AP view of the pelvis with 2 views of the right hip FINDINGS: Demineralized appearance of the bones. Surgical suture material projects over the mid pelvis. There is mild osteoarthritis of the hips. No acute fracture, dislocation or avascular necrosis. Unremarkable soft tissues. IMPRESSION: No acute fracture or dislocation. ACT 112: Negative or not required by law. The above report was generated using voice recognition software. It may contain grammatical, syntax or spelling errors. Electronically signed by: Diallo Pina M.D. 01/29/2022 4:56 PM Lumbar Spine X-Ray 01/29/22 15:33 XR lumbar spine 2-3V CLINICAL HISTORY: fall TECHNIQUE: 2 views of the lumbar spine were obtained. Comparison: Comparison is made to lumbar spine radiographs 12/07/2015 FINDINGS: There is no evidence of an acute fracture. Degenerative changes are seen in the lumbar spine. The alignment is normal. No soft tissue abnormality is seen. IMPRESSION: No acute fracture or subluxation. ACT 112: Negative or not required by law. Electronically signed by: Uriel Rhoades M.D. 01/29/2022 4:54 PM Abdomen/Pelvis CT 01/29/22 17:[address] WITH IV CONTRAST; CT LUMBAR SPINE WITH IV CONTRAST CT DOSE: 698.39 mGy.cm HISTORY: Acute abdominal and low back pain status post fall lower back pain s/p fall TECHNIQUE: Multiaxial CT images of the abdomen/pelvis and lumbar spine were performed following the IV administration of 94 cc of Optiray, A dose lowering technique was utilized adhering to the principles of ALARA. COMPARISON STUDY: CT abdomen pelvis 03/01/2021 FINDINGS: CT ABDOMEN/PELVIS: The imaged inferior cardiac chambers are mildly enlarged with mild coronary artery calcifications. Trace right pleural effusion. Mild bibasilar densities suggest atelectasis. Mild right hemidiaphragmatic elevation. No pneumatosis or pneumoperitoneum. The spleen is enlarged, 14.9 cm. Unremarkable pancreas and adrenal glands. Cholecystectomy. There is suggestion of hepatic steatosis. Mild marginal nodularity of the liver compatible with cirrhosis. Patency of the he patic and portal veins. Symmetric enhancement of the kidneys. 3 mm nonobstructing calculus of the interpolar left kidney.. There are no ureteral calculi or hydronephrosis. Unremarkable urinary bladder. The uterus and adnexa are unremarkable. Atherosclerosis of the aorta without aneurysm. Borderline enlarged periportal and precaval lymph nodes are likely secondary to chronic liver disease. Small hiatal hernia. No bowel obstruction or bowel wall thickening. Prior partial sigmoid colon resection with colocolonic anastomosis. Extensive colonic diverticulosis without acute diverticulitis. Normal appendix. Small fat filled ventral abdominal wall hernias measure up to 2.3 cm. Degenerative changes of the spine, pelvis and hips. Acute fracture of the L2 vertebral body as below. There is a suggested segmentation anomaly involving the T7 vertebral body. LUMBAR SPINE: Demineralized appearance of the bones. Moderate L5-S1 intervertebral disc space narrowing with posterior disc osteophyte complex formations noted at T12-L1, L1- L2 and L5-S1. Moderate to severe multilevel facet arthrosis with mild spondylitic spurring. Acute fractures are noted involving the anterior and superior cortices at L2 with approximately 20% superior endplate compression. No retropulsion. Minimal paravertebral edema. No high-grade central canal stenosis identified. Sacrum and iliac bones appear intact. IMPRESSION: 1. Acute 20% superior endplate compression deformity of the L2 vertebral body with mild paravertebral edema. No retropulsion. 2. No acute solid organ injury. 3. Cirrhosis with suggestion of portal venous hypertension 4. 3 mm nonobstructing left renal calculus. 5. Trace right pleural effusion. 6. Chronic findings as above. ACT 112: Negative or not required by law. The above report was generated using voice recognition software. It may contain grammatical, syntax or spelling errors. Electronically signed by: Diallo Pina M.D. 01/29/2022 7:[address] 01/29/22 17:[address] WITH IV CONTRAST; CT LUMBAR SPINE WITH IV CONTRAST CT DOSE: 698.39 mGy.cm HISTORY: Acute abdominal and low back pain status post fall lower back pain s/p fall TECHNIQUE: Multiaxial CT images of the abdomen/pelvis and lumbar spine were performed following the IV administration of 94 cc of Optiray, A dose lowering technique was utilized adhering to the principles of ALARA. COMPARISON STUDY: CT abdomen pelvis 03/01/2021 FINDINGS: CT ABDOMEN/PELVIS: The imaged inferior cardiac chambers are mildly enlarged with mild coronary artery calcifications. Trace right pleural effusion. Mild bibasilar densities suggest atelectasis. Mild right hemidiaphragmatic elevation. No pneumatosis or pneumoperitoneum. The spleen is enlarged, 14.9 cm. Unremarkable pancreas and adrenal glands. Cholecystectomy. There is suggestion of hepatic steatosis. Mild marginal nodularity of the liver compatible with cirrhosis. Patency of the hepatic and portal veins. Symmetric enhancement of the kidneys. 3 mm nonobstructing calculus of the interpolar left kidney.. There are no ureteral calculi or hydronephrosis. Unremarkable urinary bladder. The uterus and adnexa are unremarkable. Atherosclerosis of the aorta without aneurysm. Borderline enlarged periportal and precaval lymph nodes are likely secondary to chronic liver disease. Small hiatal hernia. No bowel obstruction or bowel wall thickening. Prior partial sigmoid colon resection with colocolonic anastomosis. Extensive colonic diverticulosis without acute diverticulitis. Normal appendix. Small fat filled ventral abdominal wall hernias measure up to 2.3 cm. Degenerative changes of the spine, pelvis and hips. Acute fracture of the L2 vertebral body as below. There is a suggested segmentation anomaly involving the T7 vertebral body. LUMBAR SPINE: Demineralized appearance of the bones. Moderate L5-S1 intervertebral disc space narrowing with posterior disc osteophyte complex formations noted at T12-L1, L1- L2 and L5-S1. Moderate to severe multilevel facet arthrosis with mild spondylitic spurring. Acute fractures are noted involving the anterior and superior cortices at L2 with approximately 20% superior endplate compression. No retropulsion. Minimal paravertebral edema. No high-grade central canal stenosis identified. Sacrum and iliac bones appear intact. IMPRESSION: 1. Acute 20% superior endplate compression deformity of the L2 vertebral body with mild paravertebral edema. No retropulsion. 2. No acute solid organ injury. 3. Cirrhosis with suggestion of portal venous hypertension 4. 3 mm nonobstructing left renal calculus. 5. Trace right pleural effusion. 6. Chronic findings as above. ACT 112: Negative or not required by law. The above report was generated using voice recognition software. It may contain grammatical, syntax or spelling errors. Electronically signed by: Diallo Pina M.D. 01/29/2022 7:10 PM Discharge Plan Visit Data Chief Complaint: Fall ED Provider: Jos Conklin Discharge Problem: Back pain, Fall, Compression fx, lumbar spine Forms Stand Alone Forms: [facility] [employer] Prescriptions Prescriptions: No Action albuterol sulfate [ProAir HFA] 90 mcg/actuation HFA aerosol inhaler 2 puff INH Q4H PRN (Reason: cough or shortness of breath) Qty: 18 RF: 1 montelukast 10 mg tablet 10 mg PO PM Qty: 90 RF: 3 diazepam 2 mg tablet 2 mg PO .COMPLEX PRN (Reason: anxiety) Qty: 2 RF: 0 escitalopram oxalate 10 mg tablet 10 mg PO QAM Qty: 90 RF: 3 Dexilant 30 mg capsule,biphase delayed releas 30 mg PO QAM Qty: 90 RF: 3 Breo Ellipta 200-25 mcg/dose blister with device 1 inh INH QAM Qty: 3 RF: 1 benzonatate 100 mg capsule 100 mg PO Q8H PRN (Reason: cough) Qty: 90 RF: 3 estradiol 0.01 % (0.1 mg/gram) cream 1 g vaginal 2XWK RF: 0 (DME) LiteAire MDI Chamber spacer See Dose Instructions .ROUTE .MEDSUPPLY Qty: 1 RF: 0 clotrimazole-betamethasone 1-0.05 % cream 1 applic topical .qhs Qty: 45 RF: 11 hydroxyzine HCl 25 mg Tablet 25 mg PO QID PRN (Reason: Itching) RF: 0 pyridoxine (vitamin B6) [Vitamin B-6] 100 mg Tablet 100 mg PO HS RF: 0 Citrucel (sucrose) Powder 0.5 tbsp PO QAM RF: 0 fluocinonide 0.05 % Cream 1 applic TOPICAL BID PRN (Reason: ud) RF: 0 cetirizine [Zyrtec] 10 mg Tablet 10 mg PO QAM RF: 0 cholecalciferol (vitamin D3) [Vitamin D3] 125 mcg (5,000 unit) Tablet 5,000 unit PO 3XWK RF: 0 Domperidone 10 mg PO BID RF: 0 Referrals Referrals: Michael Mccloud MD [Primary Care Provider] -
[2022-01-29 15:48] LABS: Basophils # (auto) 0.01 K/uL (0-0.2); Basophils % (auto) 0.1 %; Eosinophils # (auto) 0.09 K/uL (0-0.5); Eosinophils % (auto) 0.9 %; Hematocrit (blood only) 40.7 % (37-47); Hemoglobin 13.4 g/dL (12.0-16.0); Immature Granulocytes # (auto) 0.06 K/uL (0.00-0.02); Immature Granulocytes % (auto) 0.6 %; Lymphocytes # (auto) 2.07 K/uL (1.2-3.4); Lymphocytes % (auto) 20.6 %; Mean Corpuscular Hemoglobin 28.7 pg (25-34); Mean Corpuscular Hgb Conc 32.9 g/dL (32-36); Mean Corpuscular Volume 87.2 fL (80-100); Mean Platelet Volume 9.9 fL (7.4-10.4); Monocytes # (auto) 0.59 K/uL (0.11-0.59); Monocytes % (auto) 5.9 %; Neutrophils # (auto) 7.21 K/uL (1.4-6.5); Neutrophils % (auto) 71.9 %; Platelet Count 186 K/uL (130-400); RDW Standard Deviation 47.8 fL (36.4-46.3); Red Blood Count 4.67 M/uL (4.2-5.4); White Blood Count 10.03 K/uL (4.8-10.8)
[2022-01-29] MEDS ORDERED: ONDANSETRON INJ 2 MG/ML 2 ML VIAL IV STA (16:07)
[2022-01-29] MEDS ORDERED: MoRPHine SULFATE 4 MG/ML 1 ML CARP\\VIAL IV STA (16:07)
[2022-01-29 16:21] LABS: Albumin Globulin Ratio 1.4 (0.9-2); Albumin Level 4.3 gm/dl (3.4-5.0); BUN Creatinine Ratio 18.8 (10-20); Bilirubin,Total 0.5 mg/dl (0.2-1.0); Calcium 9.9 mg/dl (8.5-10.1); Creatinine Clr Calc Pharmacy 83.8 ml/min; Est GFR (African American) 105.1 ml/min; Est GFR (Non-African American) 90.7 ml/min; Globulin 3.1 gm/dl (2.5-4.0); Potassium 4.4 mmol/L (3.5-5.1); Total Protein 7.4 gm/dl (6.0-8.3)
--- NOTE | 2022-01-29 16:56 | XRay Report ---
XR lumbar spine 2-3V CLINICAL HISTORY: fall TECHNIQUE: 2 views of the lumbar spine were obtained. Comparison: Comparison is made to lumbar spine radiographs 12/07/2015 FINDINGS: There is no evidence of an acute fracture. Degenerative changes are seen in the lumbar spine. The ali gnment is normal. No soft tissue abnormality is seen. IMPRESSION: No acute fracture or subluxation. ACT 112: Negative or not required by law. Electronically signed by: Uriel Rhoades M.D. 01/29/2022 4:54 PM
--- NOTE | 2022-01-29 16:57 | XRay Report ---
XR hip RT 2V w pelvis HISTORY: 66 years-old Female r hip pain acute pain without reported trauma COMPARISON: Radiographs 11/05/2014 TECHNIQUE: AP view of the pelvis with 2 views of the right hip FINDINGS: Demineralized appearance of the bones. Surgical suture material projects over the mid pelvis. There i s mild osteoarthritis of the hips. No acute fracture, dislocation or avascular necrosis. Unremarkable soft tissues. IMPRESSION: No acute fracture or dislocation. ACT 112: Negative or not required by law. The above report was generated using voice recognition software. It may contain grammatical, syntax o r spelling errors. Electronically signed by: Diallo Pina M.D. 01/29/2022 4:56 PM
[2022-01-29] MEDS ORDERED: OPTIRAY 320 100ml IV ONE (18:39)
--- NOTE | 2022-01-29 19:13 | CT Scan Report ---
ABDOMEN AND PELVIS CT WITH IV CONTRAST; CT LUMBAR SPINE WITH IV CONTRAST CT DOSE: 698.39 mGy.cm HISTORY: Acute abdominal and low back pain status post fall lower back pain s/p fall TECHNIQUE: Multiaxial CT images of the abdomen/pelvis and lumbar spine were performed following the I V administration of 94 cc of Optiray, A dose lowering technique was utilized adhering to the princip les of FRANCESCA. COMPARISON STUDY: CT abdomen pelvis 03/01/2021 FINDINGS: CT ABDOMEN/PELVIS: The imaged inferior cardiac chambers are mildly enlarged with mild coronary artery calcifications. Tr kath right pleural effusion. Mild bibasilar densities suggest atelectasis. Mild right hemidiaphragmati c elevation. No pneumatosis or pneumoperitoneum. The spleen is enlarged, 14.9 cm. Unremarkable pancre as and adrenal glands. Cholecystectomy. There is suggestion of hepatic steatosis. Mild marginal nodul arity of the liver compatible with cirrhosis. Patency of the hepatic and portal veins. Symmetric enha ncement of the kidneys. 3 mm nonobstructing calculus of the interpolar left kidney.. There are no ure teral calculi or hydronephrosis. Unremarkable urinary bladder. The uterus and adnexa are unremarkable . Atherosclerosis of the aorta without aneurysm. Borderline enlarged periportal and precaval lymph no kiara are likely secondary to chronic liver disease. Small hiatal hernia. No bowel obstruction or bowel wall thickening. Prior partial sigmoid colon resec tion with colocolonic anastomosis. Extensive colonic diverticulosis without acute diverticulitis. Nor mal appendix. Small fat filled ventral abdominal wall hernias measure up to 2.3 cm. Degenerative rosas ges of the spine, pelvis and hips. Acute fracture of the L2 vertebral body as below. There is a sugge sted segmentation anomaly involving the T7 vertebral body. LUMBAR SPINE: Demineralized appearance of the bones. Moderate L5-S1 intervertebral disc space narrowing with industrial chemistry teacher ior disc osteophyte complex formations noted at T12-L1, L1-L2 and L5-S1. Moderate to severe multileve l facet arthrosis with mild spondylitic spurring. Acute fractures are noted involving the anterior an d superior cortices at L2 with approximately 20% superior endplate compression. No retropulsion. Mini mal paravertebral edema. No high-grade central canal stenosis identified. Sacrum and iliac bones appe ar intact. IMPRESSION: 1. Acute 20% superior endplate compression deformity of the L2 vertebral body with mild paravertebral edema. No retropulsion. 2. No acute solid organ injury. 3. Cirrhosis with suggestion of portal venous hypertension 4. 3 mm nonobstructing left renal calculus. 5. Trace right pleural effusion. 6. Chronic findings as above. ACT 112: Negative or not required by law. The above report was generated using voice recognition software. It may contain grammatical, syntax o r spelling errors. Electronically signed by: Diallo iPna M.D. 01/29/2022 7:10 PM
[2022-01-29] MEDS ORDERED: MoRPHine SULFATE 2 MG/ML CARP IV STA (19:34)
[2022-01-29] MEDS ORDERED: ACETAMINOPHEN 325 MG TAB PO STA (19:55)
[2022-01-29] MEDS ORDERED: IBUPROFEN 600 MG TAB PO STA (19:55)
[2022-01-29] MEDS ORDERED: ONDANSETRON 4 MG OD TAB PO STA (19:58)
--- NOTE | 2022-01-29 20:20 | History & Physical Report ---
Date of Service January 29, 2022 Assessment & Plan (1) Pain aggravated by changing postions: Plan: Acute pain following fall down steps resulting in T2 endplate compression fracture without retropulsion - may have also teena her right SI joint as well as most pain localizing to this area - Tylenol 1 GM PO now- then 650mg PO q6 prn- up to 3 GM daily with her GARCIA is appropriate - Motrin 600mg PO now then q8 hour prn - Lidocaine patch to lower back now - K pad for heat to lower back - Consider anti-spasmodic if needed- currently muscles are not tensed - Continue to rest with legs elevated may keep pressure off lower back - If no improvement consider steroid - Follow LFTs with above (2) Compression fracture of T2 vertebra: Plan: As above - s/p fall 20% superior endplate compression deformity of the L2 vertebral body with mild paravertebral edema. No retropulsion. - As above (3) Asthma: Plan: Asthma with cough syndrome - appears well controlled with review continue with her long standing treatments - TAMI, BREO or in house equivalent- may need spacer - Continue Zyrtec (4) Non-alcoholic cirrhosis: Plan: Follows with GI and hepatology in [place] - annual MRI for transplant protocol - EGD performed 07/04 with no change - Monitor with addition of Narcotics/Tylenol and NSAID dosing at this time (5) Esophageal varices: Plan: Grade I as above folllows with GI - no acute need at this time (6) History of supraventricular tachycardia: Plan: Ablation hx - no BB (7) GERD (gastroesophageal reflux disease): Plan: Will add PPI while adding NSAIDS (8) S/P rotator cuff surgery: Plan: No acute needs (9) Anxiety and depression: Plan: Continue dexlansoprazole, escitalopram, History of Present Illness Primary Care Provider: Michael Mccloud MD 66 YOF with past medical history of: GARCIA cirrhosis, Grade I varices, hiatal hernia, asthma with cough variant, GERD, 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 Patient comes to the EMD today after slipping down the steps where she fell back on her back against the steps. She feels like she landed more on her back than on her buttocks. In the EMD the patient had routine labs performed, she had CT scan of her lumbar spine, abd/pelvis, and plain films of her lumbar spine and hip/pelvis. Her CT scan revealed- endplate compression deformity of the L2 vertebral body with mild paravertebral edema. No retropulsion. She was given Morphine for her pain x 2 doses by the EMD and was unable to control her pain. The hospitalist service was then consulted for admission. The patient was seen and laying flat with with her legs flexed as her position of comfort. The patient points to most of her pain in the right lower back approximate to her SI joint. She was able to straighten her legs and has no radicular symptoms and sensation is intact down her lower legs. Patient will be observed overnight for multimodal pain control. Allergies Allergy/AdvReac Type Severity Reaction Status Date / Time codeine Allergy Mild GI UPSET Verified 01/29/22 15:59 sulfamethoxazole Allergy Mild GI UPSET Verified 01/29/22 15:59 trimethoprim Allergy Mild GI UPSET Verified 01/29/22 15:59 amoxicillin Allergy Unknown "BAD FOR Verified 01/29/22 15:59 LIVER BECAUSE I HAVE LIVER PROBLEMS" Bactrim Allergy Unknown GI UPSET Verified 10/08/17 15:30 clavulanic acid Allergy Unknown "BAD FOR Verified 01/29/22 15:59 LIVER BECAUSE I HAVE LIVER PROBLEMS" methotrexate Allergy Unknown "BAD FOR Verified 01/29/22 15:59 MY LIVER BECAUSE I HAVE LIVER PROBLEMS" Methotrexate Analogues Allergy Unknown "told Verified 01/29/22 15:59 never to take d/t liver disease" pseudoephedrine AdvReac Intermediate IRRITABILIT Verified 01/29/22 15:59 Y adhesive AdvReac Mild ADHESIVE Verified 01/29/22 15:59 TAPE = REDNESS fentanyl AdvReac Mild Vomiting Verified 01/29/22 15:59 Home Medications Medication Instructions Recorded Confirmed Type hydroxyzine HCl 25 mg tablet 25 mg PO QID PRN 11/06/18 01/29/22 History methylcellulose (with sugar) oral 0.5 tbsp PO QAM 11/06/18 01/29/22 History powder (Citrucel (sucrose)) pyridoxine (vitamin B6) 100 mg 100 mg PO HS 11/06/18 01/29/22 History tablet (Vitamin B-6) inhalational spacing device #1 ea 08/04/19 01/29/22 Rx (LiteAire MDI Chamber) Domperidone 10 mg PO BID 09/15/19 01/29/22 History cetirizine 10 mg tablet (Zyrtec) 10 mg PO QAM 09/15/19 01/29/22 History cholecalciferol (vitamin D3) 125 5,000 unit PO 3XWK 09/15/19 01/29/22 History mcg (5,000 unit) tablet (Vitamin D3) benzonatate 100 mg capsule 100 mg PO Q8H PRN #90 cap 05/10/20 01/29/22 Rx fluocinonide 0.05 % topical cream 1 applic TOPICAL BID PRN 06/14/20 01/29/22 History albuterol sulfate 90 mcg/actuation 2 puff INH Q4H PRN #18 gm 12/06/20 01/29/22 Rx aerosol inhaler (ProAir HFA) estradiol 1 g VAGINAL 2XWK g 04/26/21 01/29/22 History montelukast 10 mg tablet 10 mg PO PM #90 tab 04/27/21 01/29/22 Rx clotrimazole-betamethasone 1 1 applic TOPICAL .qhs #45 g 06/09/21 01/29/22 Rx %-0.05 % topical cream diazepam 2 mg tablet 2 mg PO .COMPLEX PRN #2 tab 08/18/21 01/29/22 Rx escitalopram oxalate 10 mg tablet 10 mg PO QAM #90 tab 09/06/21 01/29/22 Rx dexlansoprazole 30 mg 30 mg PO QAM #90 cap 11/13/21 01/29/22 Rx capsule,biphase delayed release (Dexilant) fluticasone furoate 200 1 inh INH QAM #3 inhaler 01/16/22 01/29/22 Rx mcg-vilanterol 25 mcg/dose inhalation powder (Breo Ellipta) Past Med/Surg History Medical History Asthma COUGH VARIANT; rare use of PRN inhaler Cirrhosis BORDERLINE. NON ALCOHOLIC.; [place] [facility] GERD (gastroesophageal reflux disease) Hiatal hernia History of malignant carcinoid tumor of bronchus and lung 2013 - treated surgically; no chemo/radiation History of supraventricular tachycardia s/p ablation Surgical History History of bowel resection r/t diverticular disease History of bronchoscopy RIGHT LOWER LOBE BIOPSY History of cardiac radiofrequency ablation [facility] FOR SVT. NO ISSUES SINCE. History of cholecystectomy LAP History of colonoscopy History of esophagogastroduodenoscopy (EGD) History of lobectomy of lung RIGHT (2012) AT [facility] History of oral surgery History of tonsillectomy Nausea and vomiting after administration of anesthetic agent S/P excision of lipoma Family History Sister Obesity Asthma Father Diabetes Coronary heart disease Squamous cell carcinoma Hypertension Mother TIA (transient ischemic attack) Breast cancer Hypertension Uterine cancer Family history of reaction to anesthesia difficulty waking Grandfather (Maternal) Parkinson disease Denies family history of Ovarian cancer Prostate cancer Myocardial infarction Colorectal cancer Social History Smoking Status: Never smoker Second Hand Exposure: Yes (CHILDHOOD); Hx Alcohol Use: Yes Alcohol type: wine Hx Substance Use: No Preferred Language: Belarusian Communication Ability: Effective Visual Impairment: No Limitations Hearing Ability: Normal Drafting Clerk Required: No Beliefs That Will Affect Care: None marital status: Current Living Situation: Spouse current occupational status: retired Other Information That Helps Us Care for You: No Feels Safe at Home: Yes Safety Concerns: Feels Safe At This Time Childhood Exposure to Second-Hand Smoke: Yes Dental Care, Regularly: Yes Physical Activity Frequency: Does not Exercise Seatbelt Use: always Sunscreen Use: Yes (Ocassionally) Assistive Devices: Contacts Assistive Devices Comment: contact for left eye only Review of Systems Review of Systems: REVIEW OF SYSTEMS: Constitutional: No fever, sweats or chills Eyes: No diplopia, no worsening or blurred vision ENT: normal hearing, no trouble swallowing Respiratory: No cough, sputum, dyspnea at rest or on exertion Cardiovascular: No chest pain, tightness or palpitations Abdomen: No pain, nausea, vomiting, diarrhea or constipation Musculoskeletal: (+)lower back right si joint pain, no calf pain, swelling Neurologic: No weakness, numbness/tingling, or balance problems Psychiatric: No anxiety or depression Skin: No rash or itch Physical Exam Physical Exam: PHYSICAL EXAM: General: awake, alert, no apparent distress Head: Normocephalic, atraumatic ENT: PERRL, EOMI, no pharyngeal exudate, mucous membranes moist Neuro: AAO x 3, speech clear and appropriate, strength intact bilaterally 5/5, sensation intact and equal all extremities and dermatomes, no pronator drift Chest: equal rise and fall of the chest, no accessory muscle use, no heaves or thrills, Clear to auscultation, on room air, Cardiac: Regular rate and rhythm, telemetry reviewed-NSR, skin warm dry, cap refill <3 seconds, peripheral pulses +2 no JVD, no murmur, no edema GI: NABS x 4 quadrants, soft, nontender to palpation, no rebound, guarding or tenderness : Spontaneously voiding, no pain, no CVA tenderness, Extremities: Normal inspection, no peripheral edema or erythema, calfs nontender to palpation MSK: Patient is without cervical spinal tenderness, full range of motion without pain flexion/or extension and lateral rotation of the neck, no crepitus with palpation, Thoracic spine is without pain on the centerline, no rib pain with palpation or deep breath, shoulders with full range of motion, pelvis is stable, hips without pain with abduction or adduction, knees without pain full range of motion, PAIN is noticed with right lower back with rotation to the left side and with palpation to right SI joint, left side is without pain and able to laterally rotate to the right. Psych: Normal mood and affect Skin: no rash or erythema Results & Data Results & Data ([facility]) Vital Signs (Past 12 Hours) Vital Signs Pulse Pulse Resp BP BP Pulse Ox 01/29/22 19:00 80 16 142/79 H 94 01/29/22 16:59 66 12 122/65 94 01/29/22 15:41 73 18 142/74 H 93 01/29/22 15:36 95 01/29/22 15:10 89 12 140/78 94 Laboratory Results Abnormal lab results 01/29/22 01/29/22 Range/Units 15:19 15:39 RDW Std Deviation 47.8 H (36.4-46.3) fL RDW Coeff of Linda 15.0 H (11.5-14.5) % Neut # (Auto) 7.21 H (1.4-6.5) K/uL Immature Gran # (Auto) 0.06 H (0.00-0.02) K/uL AST 53 H (13-39) U/L Diagnostic Findings Hip/Pelvis X-Ray 01/29/22 15:33 XR hip RT 2V w pelvis HISTORY: 66 years-old Female r hip pain acute pain without reported trauma COMPARISON: Radiographs 11/05/2014 TECHNIQUE: AP view of the pelvis with 2 views of the right hip FINDINGS: Demineralized appearance of the bones. Surgical suture material projects over the mid pelvis. There is mild osteoarthritis of the hips. No acute fracture, dislocation or avascular necrosis. Unremarkable soft tissues. IMPRESSION: No acute fracture or dislocation. ACT 112: Negative or not required by law. The above report was generated using voice recognition software. It may contain grammatical, syntax or spelling errors. Electronically signed by: Diallo Pina M.D. 01/29/2022 4:56 PM Lumbar Spine X-Ray 01/29/22 15:33 XR lumbar spine 2-3V CLINICAL HISTORY: fall TECHNIQUE: 2 views of the lumbar spine were obtained. Comparison: Comparison is made to lumbar spine radiographs 12/07/2015 FINDINGS: There is no evidence of an acute fracture. Degenerative changes are seen in the lumbar spine. The alignment is normal. No soft tissue abnormality is seen. IMPRESSION: No acute fracture or subluxation. ACT 112: Negative or not required by law. Electronically signed by: Uriel Rhoades M.D. 01/29/2022 4:54 PM Abdomen/Pelvis CT 01/29/22 17:[address] WITH IV CONTRAST; CT LUMBAR SPINE WITH IV CONTRAST CT DOSE: 698.39 mGy.cm HISTORY: Acute abdominal and low back pain status post fall lower back pain s/p fall TECHNIQUE: Multiaxial CT images of the abdomen/pelvis and lumbar spine were performed following the IV administration of 94 cc of Optiray, A dose lowering technique was utilized adhering to the principles of ALARA. COMPARISON STUDY: CT abdomen pelvis 03/01/2021 FINDINGS: CT ABDOMEN/PELVIS: The imaged inferior cardiac chambers are mildly enlarged with mild coronary artery calcifications. Trace right pleural effusion. Mild bibasilar densities suggest atelectasis. Mild right hemidiaphragmatic elevation. No pneumatosis or pneumoperitoneum. The spleen is enlarged, 14.9 cm. Unremarkable pancreas and adrenal glands. Cholecystectomy. There is suggestion of hepatic steatosis. Mild marginal nodularity of the liver compatible with cirrhosis. Patency of the hepatic and portal veins. Symmetric enhancement of the kidneys. 3 mm nonobstructing calculus of the interpolar left kidney.. There are no ureteral calculi or hydronephrosis. Unremarkable urinary bladder. The uterus and adnexa are unremarkable. Atherosclerosis of the aorta without aneurysm. Borderline enlarged periportal and precaval lymph nodes are likely secondary to chronic liver disease. Small hiatal hernia. No bowel obstruction or bowel wall thickening. Prior partial sigmoid colon resection with colocolonic anastomosis. Extensive colonic diverticulosis without acute diverticulitis. Normal appendix. Small fat filled ventral abdominal wall hernias measure up to 2.3 cm. Degenerative changes of the spine, pelvis and hips. Acute fracture of the L2 vertebral body as below. There is a suggested segmentation anomaly involving the T7 vertebral body. LUMBAR SPINE: Demineralized appearance of the bones. Moderate L5-S1 intervertebral disc space narrowing with posterior disc osteophyte complex formations noted at T12-L1, L1- L2 and L5-S1. Moderate to severe multilevel facet arthrosis with mild spondylitic spurring. Acute fractures are noted involving the anterior and superior cortices at L2 with approximately 20% superior endplate compression. No retropulsion. Minimal paravertebral edema. No high-grade central canal stenosis identified. Sacrum and iliac bones appear intact. IMPRESSION: 1. Acute 20% superior endplate compression deformity of the L2 vertebral body with mild paravertebral edema. No retropulsion. 2. No acute solid organ injury. 3. Cirrhosis with suggestion of portal venous hypertension 4. 3 mm nonobstructing left renal calculus. 5. Trace right pleural effusion. 6. Chronic findings as above. ACT 112: Negative or not required by law. The above report was generated using voice recognition software. It may contain grammatical, syntax or spelling errors. Electronically signed by: Diallo Pina M.D. 01/29/2022 7:[address] 01/29/22 17:[address] WITH IV CONTRAST; CT LUMBAR SPINE WITH IV CONTRAST CT DOSE: 698.39 mGy.cm HISTORY: Acute abdominal and low back pain status post fall lower back pain s/p fall TECHNIQUE: Multiaxial CT images of the abdomen/pelvis and lumbar spine were performed following the IV administration of 94 cc of Optiray, A dose lowering technique was utilized adhering to the principles of ALARA. COMPARISON STUDY: CT abdomen pelvis 03/01/2021 FINDINGS: CT ABDOMEN/PELVIS: The imaged inferior cardiac chambers are mildly enlarged with mild coronary artery calcifications. Trace right pleural effusion. Mild bibasilar densities suggest atelectasis. Mild right hemidiaphragmatic elevation. No pneumatosis or pneumoperitoneum. The spleen is enlarged, 14.9 cm. Unremarkable pancreas and adrenal glands. Cholecystectomy. There is suggestion of hepatic steatosis. Mild marginal nodularity of the liver compatible with cirrhosis. Patency of the hepatic and portal veins. Symmetric enhancement of the kidneys. 3 mm nonobstructing calculus of the interpolar left kidney.. There are no ureteral calculi or hydronephrosis. Unremarkable urinary bladder. The uterus and adnexa are unremarkable. Atherosclerosis of the aorta without aneurysm. Borderline e nlarged periportal and precaval lymph nodes are likely secondary to chronic liver disease. Small hiatal hernia. No bowel obstruction or bowel wall thickening. Prior partial sigmoid colon resection with colocolonic anastomosis. Extensive colonic diverticulosis without acute diverticulitis. Normal appendix. Small fat filled ventral abdominal wall hernias measure up to 2.3 cm. Degenerative changes of the spine, pelvis and hips. Acute fracture of the L2 vertebral body as below. There is a suggested segmentation anomaly involving the T7 vertebral body. LUMBAR SPINE: Demineralized appearance of the bones. Moderate L5-S1 intervertebral disc space narrowing with posterior disc osteophyte complex formations noted at T12-L1, L1- L2 and L5-S1. Moderate to severe multilevel facet arthrosis with mild spondylitic spurring. Acute fractures are noted involving the anterior and superior cortices at L2 with approximately 20% superior endplate compression. No retropulsion. Minimal paravertebral edema. No high-grade central canal stenosis identified. Sacrum and iliac bones appear intact. IMPRESSION: 1. Acute 20% superior endplate compression deformity of the L2 vertebral body with mild paravertebral edema. No retropulsion. 2. No acute solid organ injury. 3. Cirrhosis with suggestion of portal venous hypertension 4. 3 mm nonobstructing left renal calculus. 5. Trace right pleural effusion. 6. Chronic findings as above. ACT 112: Negative or not required by law. The above report was generated using voice recognition software. It may contain grammatical, syntax or spelling errors. Electronically signed by: Diallo Pina M.D. 01/29/2022 7:10 PM Medications Administered Discontinued Medications Acetaminophen (Acetaminophen 325 Mg Tab) 650 mg PO NOW STA Stop: 01/29/22 19:56 Last Admin: 01/29/22 20:19 Dose: 650 mg Documented by: [id number] Ibuprofen (Ibuprofen 600 Mg Tab) 600 mg PO NOW STA Stop: 01/29/22 19:56 Last Admin: 01/29/22 20:20 Dose: 600 mg Documented by: [id number] Ioversol (Optiray 320 100ml) 94 ml IV ONCE ONE Stop: 01/29/22 18:40 Last Admin: 01/29/22 18:40 Dose: 94 ml Documented by: [id number] Morphine Sulfate (Morphine Sulfate 4 Mg/Ml 1 Ml Carp\\Vial) 4 mg IV NOW STA Stop: 01/29/22 16:08 Last Admin: 01/29/22 16:12 Dose: 4 mg Documented by: [id number] Morphine Sulfate (Morphine Sulfate 2 Mg/Ml Carp) 2 mg IV NOW STA Stop: 01/29/22 19:35 Last Admin: 01/29/22 20:19 Dose: 2 mg Documented by: [id number] Ondansetron HCl (Ondansetron Inj 2 Mg/Ml 2 Ml Vial) 4 mg IV NOW STA Stop: 01/29/22 16:08 Last Admin: 01/29/22 16:12 Dose: 4 mg Documented by: [id number] Ondansetron HCl (Ondansetron 4 Mg Od Tab) 4 mg PO NOW STA Stop: 01/29/22 19:59 Last Admin: 01/29/22 20:19 Dose: 4 mg Documented by: [id number] ECG Additional Comments: Vent. Rate : 091 BPM Atrial Rate : 091 BPM P-R Int : 164 ms QRS Dur : 092 ms QT Int : 348 ms P-R-T Axes : 014 056 046 degrees QTc Int : 428 ms Normal sinus rhythm Normal ECG When compared with ECG of 08-OCT-2017 15:36, No significant change was found Confirmed by Rivas Bolton ([id number]) on 06/19/2020 4:39:01 AM Code Status & VTE Plan Code Status CODE: FULL VTE: SCDS, Lovenox in am VTE Prophylaxis Plan VTE Prophylaxis will be ordered: Yes Supervising Physician Co-Signing Physician Notes Patient seen and examined, chart reviewed, case discussed with ABHISHEK Ramesh and I agree with his assessment and plan as documented above. In brief, patient is a 66-year-old female with history of Garcia cirrhosis with grade 1 esophageal varices, asthma, GERD, carcinoid tumor of the lung status post resection presenting after a fall at home. She was walking down the steps when she slipped and fell and landed on her back. Pain mostly in the right SI joint. No radicular symptoms. ER work-up revealed endplate compression deformity of the L2 vertebral body with mild paravertebral edema. No retropulsion. Patient with significant pain requiring morphine IV in the ER. On physical exam patient is afebrile, hemodynamically stable. Resting comfortably in the supine position HEENTnormocephalic/atraumatic, pupils equal and reactive to light, moist mucous membranes, no C-spine tenderness Heart+ S1, S2, regular, no murmur/rub/gallops Lungsequal breath sounds bilaterally, no rales/rhonchi/wheezes Abdomenpositive bowel sounds, soft, nontender, nondistended Extremitieswarm, well-perfused, no clubbing/cyanosis/edema Neurono deficits noted Labs and images reviewed. CT findings as above. Assessment/plan 66-year-old female status post fall resulting in T2 endplate compression fracture. No neurological compromise. Observation to medical for pain control. Will administer Tylenol, Motrin, lidocaine patch, morphine as needed All other acute medical problems stable. Remainder of plan as above PG Care Time/CCT Total # of Minutes Spent Total Time Spent with Patient: Total time spent is greater than 50% in coordination of care (as documented) at patient's floor/unit and/or counseling patient: Coding Level of Care Code INT OBSERVATION CARE 70M LVL 3 Diagnoses Pain aggravated by changing postions R52 Compression fracture of T2 vertebra S22.020A Asthma J45.909 Non-alcoholic cirrhosis K74.60 Esophageal varices I85.00 History of supraventricular tachycardia Z86.79 GERD (gastroesophageal reflux disease) K21.9 S/P rotator cuff surgery Z98.890 Anxiety and depression F41.9; F32.A
[2022-01-29] MEDS: LIDOCAINE 5% 1 PATCH TD SCH (20:46)
[2022-01-29] MEDS ORDERED: ALBUTEROL HFA 8 GM INHALER INH PRN (22:26)
[2022-01-29] MEDS ORDERED: MoRPHine SULFATE 2 MG/ML CARP IV PRN (22:26)
[2022-01-29] MEDS ORDERED: IBUPROFEN 600 MG TAB PO PRN (22:26)
--- NOTE | 2022-01-29 22:36 | Communication Note ---
Date of Service: January 29, 2022 Notified of patient having witnessed syncopal episode of 30 seconds. Here eyes rolled back and she did not respond to verbal stimuli, but did not have tremors or seizure like activity. Patient had just transferred from ED to medical floor and had stood up out of bed, and sat back down before the episode occurred. Holding prn narcotic pain medications. subj: Generalized warmth and sweating. No headache. Exam: A&Ox4. Normal neuro exam. No dysmetria. EOMI. Normal strength and sensation of extremities. Speech is fluent. plan: ecg. transfer to telemetry floor. reviewed hx: not on anticoagulation and did not hit head. no ct head at this time. 3:30PM: patient complaining of pain. Adding tramadol 25mg PO q8h prn for moderate to severe pain. Changed diet from clears to regular at patient request.
[2022-01-29] MEDS: ENOXAPARIN INJ 40 MG/0.4 ML SYR SQ SCH (23:17)
[2022-01-29] MEDS: CHOLECALCIFEROL 5,000 UNITS 125 MCG TAB PO SCH (23:17)
[2022-01-29] MEDS: PYRIDOXINE HCL 50 MG TAB PO SCH (23:17)
[2022-01-29] MEDS: MONTELUKAST SODIUM 10 MG TABLET PO SCH (23:17)
[2022-01-30] MEDS: traMADol HCL 50 MG TABLET PO PRN ×2 (03:46→18:33)
[2022-01-30 07:14] LABS: Basophils # (auto) 0.01 K/uL (0-0.2); Basophils % (auto) 0.1 %; Eosinophils # (auto) 0.09 K/uL (0-0.5); Hematocrit (blood only) 38.7 % (37-47); Hemoglobin 12.8 g/dL (12.0-16.0); Immature Granulocytes # (auto) 0.03 K/uL (0.00-0.02); Immature Granulocytes % (auto) 0.3 %; Lymphocytes # (auto) 1.75 K/uL (1.2-3.4); Lymphocytes % (auto) 20.1 %; Mean Corpuscular Hemoglobin 28.2 pg (25-34); Mean Corpuscular Hgb Conc 33.1 g/dL (32-36); Mean Corpuscular Volume 85.2 fL (80-100); Mean Platelet Volume 9.8 fL (7.4-10.4); Monocytes # (auto) 0.54 K/uL (0.11-0.59); Monocytes % (auto) 6.2 %; Neutrophils # (auto) 6.29 K/uL (1.4-6.5); Neutrophils % (auto) 72.3 %; Platelet Count 165 K/uL (130-400); RDW Coefficient of Variation 14.7 % (11.5-14.5); RDW Standard Deviation 45.7 fL (36.4-46.3); Red Blood Count 4.54 M/uL (4.2-5.4); White Blood Count 8.71 K/uL (4.8-10.8)
[2022-01-30 07:42] LABS: Bilirubin Direct 0.1 mg/dl (0-0.2); Bilirubin,Total 0.5 mg/dl (0.2-1.0); Calcium 9.3 mg/dl (8.5-10.1); Creatinine Clr Calc Pharmacy 88.9 ml/min; Est GFR (African American) 107.2 ml/min; Est GFR (Non-African American) 92.5 ml/min; Magnesium 2.2 mg/dl (1.7-2.4)
[2022-01-30] MEDS: ACETAMINOPHEN 325 MG TAB PO PRN ×2 (08:44→19:47)
[2022-01-30] MEDS: CALCIUM 600MG + VIT D 400 IU TAB PO SCH ×2 (08:44→19:51)
[2022-01-30] MEDS: PANTOprazole 40 MG TAB PO SCH (08:46)
[2022-01-30] MEDS: ESCITALOPRAM OXALATE 10 MG TAB PO SCH (08:46)
[2022-01-30] MEDS: CETIRIZINE HCL 10 MG TABLET PO SCH (08:46)
[2022-01-30] MEDS: FLUTICASONE/VILANTEROL 200/25MCG 14 PUFFS/INHALER INH SCH (08:47)
[2022-01-30] MEDS: CALCITONIN SALMON NA 200 IU/AC 3.7 ML BTL SCH (09:47)
[2022-01-30] MEDS: METHYLCELLULOSE POWDER 454 GM JAR PO SCH (09:50)
[2022-01-30] MEDS ORDERED: PANTOprazole 40 MG in SYRINGE 0 ML IV SCH (11:00)
--- NOTE | 2022-01-30 12:54 | Hospitalist Progress Note ---
Date of Service January 30, 2022 Assessment & Plan (1) Pain aggravated by changing postions: Plan: Acute pain following fall down steps resulting in T2 endplate compression fracture without retropulsion - may have also teena her right SI joint as well as most pain localizing to this area - Tylenol 1 GM PO now- then 650mg PO q6 prn- up to 3 GM daily with her ISLAS is appropriate -Converted systemic NSAIDs to Voltaren, patient not able to take these per her liver recommendations - Lidocaine patch to lower back now - K pad for heat to lower back -No tense tenderness,? SI pain rather than spasm pain - Continue to rest with legs elevated may keep pressure off lower back -Patient without improvement morning of 01/30, added calcitonin nasal spray daily. If continues to have no improvement will trial of prednisone - Follow LFTs with above (2) Compression fracture of T2 vertebra: Plan: -As above - s/p fall - 20% superior endplate compression deformity of the L2 vertebral body with mild paravertebral edema. No retropulsion. - As above CT-Lspine: Demineralized appearance of the bones. Moderate L5-S1 intervertebral disc space narrowing with posterior disc osteophyte complex forma tions noted at T12-L1, L1-L2 and L5-S1. Moderate to severe multilevel facet arthrosis with mild spondylitic spurring. Acute fractures are noted involving the anterior and superior cortices at L2 with approximately 20% superior endplate compression. No retropulsion. Minimal paravertebral edema. No high- grade central canal stenosis identified. Sacrum and iliac bones appear intact. Patient is with worsened pain shooting into her right hip, and new urinary retention. (3) Asthma: Plan: Asthma with cough syndrome - appears well controlled with review continue with her long standing treatments - TAMI, BREO or in house equivalent- may need spacer - Continue Zyrtec (4) Non-alcoholic cirrhosis: Plan: Follows with GI and hepatology in [place] - annual MRI for transplant protocol - EGD performed 07/04 with no change - Monitor with addition of Narcotics/Tylenol and NSAID dosing at this time (5) Esophageal varices: Plan: Grade I as above folllows with GI - no acute need at this time (6) History of supraventricular tachycardia: Plan: Ablation hx - no BB (7) GERD (gastroesophageal reflux disease): Plan: Will add PPI while adding NSAIDS (8) S/P rotator cuff surgery: Plan: No acute needs (9) Anxiety and depression: Plan: Continue dexlansoprazole, escitalopram, Admission and Anticipated Discharge Date Admission Date: January 29, 2022 Subjective Patient is seen at the bedside. Reports her pain has not been improved this morning, and has new difficulty voiding. Does have some pain shooting into her proximal right hip/leg. Denies numbness and tingling in the extremities, denies saddle anesthesia. No chest pain, chest pressure, fever, chills, sweats. Does continue have pain in her low back, somewhat right-sided worsened with any movement. She notes she is not allowed to take NSAIDs due to her liver problems, is allowed to take dose reduce Tylenol. Review of Systems Review of Systems: All systems reviewed & are unremarkable except as noted in Subjective Physical Exam Physical Exam: General: A&Ox3. NAD. Cooperative. HEENT: Atraumatic, normocephalic. Vision and hearing grossly intact Pulm: CTAB A&P. -wheezes, -rales, -rhonchi. Symmetrical chest rise. No increase in work of breathing. No respiratory distress. Cardiac: RRR, -mrg. Radial pulses intact and symmetrical. Abdominal: Nontender, nondistended, soft. BS present. Extremities: Warm, dry. Sensation intact in hands and feet to soft touch, no saddle anesthesia. Side nontender to palpations. Right side minimally tender overlying SI joint and midline lumbar spine. She reports that any movement causes her limiting pain. 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 Elbow flexion/extension 5/5. No clonus bilaterally Results & Data Results & Data ([facility]) Vital Signs (Past 12 Hours) Vital Signs Temp Pulse Pulse Resp BP Pulse Ox 01/30/22 11:19 36.6 C 62 18 124/71 92 01/30/22 11:00 59 L 01/30/22 07:25 36.5 C 58 L 16 119/72 93 01/30/22 04:03 58 L 01/30/22 03:00 36.4 C L 66 18 107/56 L 96 01/30/22 01:07 36.4 C L 64 18 120/74 95 PG Care Time/CCT Total # of Minutes Spent Total Time Spent with Patient: Total time spent is greater than 50% in coordination of care (as documented) at patient's floor/unit and/or counseling patient: Coding Level of Care Code 36598 Subseq Obs Care Lvl 2 Diagnoses Pain aggravated by changing postions R52 Compression fracture of T2 vertebra S22.020A Asthma J45.909 Non-alcoholic cirrhosis K74.60 Esophageal varices I85.00 History of supraventricular tachycardia Z86.79 GERD (gastroesophageal reflux disease) K21.9 S/P rotator cuff surgery Z98.890 Anxiety and depression F41.9; F32.A
[2022-01-30] MEDS ORDERED: diazePAM 2 MG TABLET PO PRN (14:14)
[2022-01-30] MEDS ORDERED: Nursing to Pharmacy Communication SCH (14:15)
--- NOTE | 2022-01-30 14:17 | Electrocardiogram Report ---
Test Reason : Blood Pressure : / mmHG Vent. Rate : 061 BPM Atrial Rate : 061 BPM P-R Int : 190 ms QRS Dur : 088 ms QT Int : 408 ms P-R-T Axes : 019 064 054 degrees QTc Int : 410 ms Normal sinus rhythm Normal ECG When compared with ECG of 17-JUN-2020 08:59, Vent. rate has decreased BY 30 BPM Confirmed by Dani Newby ([id number]) on 01/30/2022 2:17:24 PM Referred By: REFERRED SELF Confirmed By:Michael Newby
--- NOTE | 2022-01-30 17:53 | Magnetic Resonance Report ---
MRI OF THE LUMBAR SPINE WITHOUT CONTRAST CLINICAL HISTORY: worsening lumbar pain, urinary retention COMPARISON STUDY: Lumbar spine MRI December 26, 2015. Lumbar spine CT January 29, 2022. TECHNIQUE: Utilizing a 1.5 Heather magnet and dedicated coil, multiplanar, multiecho imaging of the stewart mbar spine was performed without IV contrast. FINDINGS: For purposes of numbering on this exam, the L5-S1 disc space is assigned to axial image 27 of 30. Ali gnment of the lumbar spine is anatomic. Note is made of an acute compression fracture of the superior endplate of L2 with 20% loss of vertebral body height. There is no retropulsion. Fracture extends to the right pedicle. No additional lumbar spine fractures are noted. There is no intracanalicular mass or fluid collection. Conus terminates at the upper L1 level. Paravertebral soft tissues are unremark able. No suspicious marrow replacement. L1-2: Small central disc protrusion is present. Central canal and neural foramen are patent. L2-3: There is no central canal or neural foraminal stenosis. L3-4: There is no central canal or neural foraminal stenosis. L4-5: There is a left foraminal annular tear with small disc protrusion. Central canal and neural for amen are patent. There is moderate facet arthrosis at this level. L5-S1: Moderate disc space narrowing is noted. Small central disc protrusion is present. Central renetta l and neural foramen are patent. IMPRESSION: 1. Acute L2 compression fracture with 20% loss of vertebral body height. Fracture extends into the ri ght pedicle. No retropulsion. No additional lumbar spine fractures. 2. Mild multilevel degenerative disc disease and moderate facet arthrosis within the lumbar spine. No central canal and neural foraminal stenosis. ACT 112: Negative or not required by law. Electronically signed by: Pito Hathaway M.D. 01/30/2022 5:52 PM
[2022-01-30] MEDS: LIDOCAINE 5% 1 PATCH TD SCH (19:48)
[2022-01-30] MEDS: ENOXAPARIN INJ 40 MG/0.4 ML SYR SQ SCH (19:51)
[2022-01-30] MEDS: MONTELUKAST SODIUM 10 MG TABLET PO SCH (19:51)
[2022-01-30] MEDS: PYRIDOXINE HCL 50 MG TAB PO SCH (19:52)
[2022-01-31] MEDS: traMADol HCL 50 MG TABLET PO PRN ×2 (02:33→20:19)
[2022-01-31] MEDS ORDERED: MoRPHine SULFATE 2 MG/ML CARP IV STA (03:41)
--- NOTE | 2022-01-31 03:51 | Communication Note ---
Date of Service: January 31, 2022 Notified of 8/10 low back pain despite tramadol. Reviewed telemetry; no arrhythmias overnight. Ordering IV morphine 1mg x 1 dose. Day team to revisit pain control regimen.
[2022-01-31] MEDS: ONDANSETRON INJ 2 MG/ML 2 ML VIAL IV PRN (04:47)
[2022-01-31] MEDS: CETIRIZINE HCL 10 MG TABLET PO SCH (07:20)
[2022-01-31] MEDS: PANTOprazole 40 MG TAB PO SCH (07:20)
[2022-01-31] MEDS: CALCIUM 600MG + VIT D 400 IU TAB PO SCH ×2 (07:21→20:20)
[2022-01-31] MEDS: ESCITALOPRAM OXALATE 10 MG TAB PO SCH (07:21)
[2022-01-31] MEDS: FLUTICASONE/VILANTEROL 200/25MCG 14 PUFFS/INHALER INH SCH (07:21)
[2022-01-31] MEDS: CALCITONIN SALMON NA 200 IU/AC 3.7 ML BTL SCH (07:22)
[2022-01-31] MEDS: METHYLCELLULOSE POWDER 454 GM JAR PO SCH (07:22)
[2022-01-31] MEDS: ACETAMINOPHEN 325 MG TAB PO PRN (07:27)
[2022-01-31 07:34] LABS: Basophils # (auto) 0.01 K/uL (0-0.2); Basophils % (auto) 0.1 %; Eosinophils # (auto) 0.27 K/uL (0-0.5); Eosinophils % (auto) 3.5 %; Hemoglobin 12.6 g/dL (12.0-16.0); Immature Granulocytes # (auto) 0.02 K/uL (0.00-0.02); Immature Granulocytes % (auto) 0.3 %; Lymphocytes # (auto) 1.86 K/uL (1.2-3.4); Lymphocytes % (auto) 24.4 %; Mean Corpuscular Hemoglobin 28.2 pg (25-34); Mean Corpuscular Hgb Conc 32.3 g/dL (32-36); Mean Corpuscular Volume 87.2 fL (80-100); Mean Platelet Volume 9.6 fL (7.4-10.4); Monocytes # (auto) 0.53 K/uL (0.11-0.59); Neutrophils # (auto) 4.93 K/uL (1.4-6.5); Neutrophils % (auto) 64.7 %; Platelet Count 164 K/uL (130-400); RDW Standard Deviation 48.2 fL (36.4-46.3); Red Blood Count 4.47 M/uL (4.2-5.4); White Blood Count 7.62 K/uL (4.8-10.8)
[2022-01-31] MEDS ORDERED: MoRPHine SULFATE 2 MG/ML CARP IV PRN (07:40)
[2022-01-31] MEDS ORDERED: traMADol HCL 50 MG TABLET PO PRN (07:40)
--- NOTE | 2022-01-31 07:42 | Hospitalist Progress Note ---
Date of Service January 31, 2022 Assessment & Plan (1) Pain aggravated by changing postions: Plan: Acute pain secondary to L endplate compression fracture without retropulsion from mechanical fall - Scheduled tylenol, Voltaren topical Miacalcin nasal spray - Lidocaine patch to lower back now -As needed Ultram, oxycodone, IV morphine - K pad for heat to lower back Pain is significant not controlled we will ask orthospine surgery give opinion (2) Lumbar compression fracture: Plan: As above - s/p fall - 20% superior endplate compression deformity of the L2 vertebral body with mild paravertebral edema. No retropulsion. - As above CT-Lspine: Demineralized appearance of the bones. Moderate L5-S1 intervertebral disc space narrowing with posterior disc osteophyte complex formations noted at T12-L1, L1-L2 and L5-S1. Moderate to severe multilevel facet arthrosis with mild spondylitic spurring. Acute fracture Multimodal pain control and consideration of orthopedic intervention (3) Asthma: Plan: Asthma with cough syndrome -Stable - TAMI, BREO or in house equivalent- may need spacer - Continue Zyrtec (4) Non-alcoholic cirrhosis: Plan: Follows with GI and hepatology in [place] - annual MRI for transplant protocol - EGD performed 07/04 with no change - Monitor with addition of Narcotics/Tylenol and NSAID dosing at this time (5) Esophageal varices: Plan: Grade I as above jhons with GI - no acute need at this time (6) History of supraventricular tachycardia: Plan: Ablation hx - no BB (7) GERD (gastroesophageal reflux disease): Plan: Will add PPI while adding NSAIDS (8) S/P rotator cuff surgery: Plan: No acute needs (9) Anxiety and depression: Plan: Continue dexlansoprazole, escitalopram, Admission and Anticipated Discharge Date Admission Date: January 29, 2022 Subjective This patient having a poor experience with pain control. Did have some initial syncope and pain medications were reduced but she could not tolerate pain today. Given the fact that she is on multimodal pain control without good relief including scheduled Tylenol Miacalcin and various strength opiates will confer with orthopedic spine surgery whether this patient may be a candidate for intervention with vertebroplasty or kyphoplasty. Her pain is such that we cannot rehab her or get her out of bed she however does not have any radicular symptoms at present Review of Systems Review of Systems: Moderate to severe distress and fatigue no headache, no visual changes no speech or swallowing issues no chest pain, pressure or palpitations no shortness of breath, cough or wheezes no abdominal pain, nausea or vomiting, has had constipation no dysuria, hematuria or frequency urinary incontinence no focal joint pain or swelling Significant lumbar back pain, without CVA tenderness or radicular pain no bruising, bleeding or rashes no focal signs of weakness or numbness or altered sensation no complaints of anxiety or depression.. Physical Exam Physical Exam: The patient appeared well nourished and normally developed. Vital signs as documented. Head exam is normocephalic atraumatic Neck is without JVD, thyromegaly, or carotid bruits. Lungs are clear to auscultation, no focal loss of breath sounds Cardiac exam, Rhythm is regular.. No murmurs, rubs or gallops. Abdominal exam reveals normal bowel sounds, soft non tender, no masses Extremities are nonedematous and both pedal pulses are present Significant lumbar back pain without radiation to movement Neurologic exam is alert and oriented, no focal loss of strength or sensation Skin is without bruises or rashes Psychologically is without concerns for anxiety or depression.. Results & Data Results & Data ([facility]) Vital Signs (Past 12 Hours) Vital Signs Temp Pulse Pulse Resp BP Pulse Ox 01/31/22 03:15 97.9 F 60 18 125/71 94 01/31/22 00:35 62 01/30/22 23:18 97.9 F 60 20 123/71 95 PG Care Time/CCT Total # of Minutes Spent Total Time Spent with Patient: Total time spent is greater than 50% in coordination of care (as documented) at patient's floor/unit and/or counseling patient: Coding Level of Care Code 68467 Subseq Hosp Care Lvl 2 Diagnoses Pain aggravated by changing postions R52 Asthma J45.909 Non-alcoholic cirrhosis K74.60 Esophageal varices I85.00 History of supraventricular tachycardia Z86.79 GERD (gastroesophageal reflux disease) K21.9 S/P rotator cuff surgery Z98.890 Anxiety and depression F41.9; F32.A Lumbar compression fracture S32.000A
[2022-01-31 08:00] LABS: BUN Creatinine Ratio 17.8 (10-20); Calcium 9.2 mg/dl (8.5-10.1); Creatinine Clr Calc Pharmacy 79.1 ml/min; Est GFR (African American) 99.5 ml/min; Est GFR (Non-African American) 85.8 ml/min; Magnesium 2.1 mg/dl (1.7-2.4); Potassium 4.6 mmol/L (3.5-5.1)
[2022-01-31] MEDS: oxyCODONE HCL IR 5 MG TAB (IMMEDIATE RELEASE) PO PRN ×3 (08:29→17:33)
[2022-01-31] MEDS: ACETAMINOPHEN 500 MG TAB PO SCH ×3 (08:29→20:19)
--- NOTE | 2022-01-31 15:29 | Consultation ---
Date of Consultation January 31, 2022 Assessment & Plan (1) Lumbar compression fracture: Dr. Amaro has reviewed case as well as imaging. Pain seems to be decently controlled. We will try and treat this conservatively. Certainly if she declines would consider kyphoplasty. In the interim I will order TLSO brace to be worn with activity. No lifting greater than 5 pounds. Would recommend starting ambulation once brace has been received. We will continue to follow along. All questions have been answered for the patient and her . History of Present Illness Reason for Consultation: Acute L2 compression fracture status post fall Attending Physician: Arley Lema MD History of Present Illness Is a 66-year-old female who was outside going into her home and fell down her 3 steps two days ago. Since her admission she states she has not been out of bed. She denies radicular complaints. Denies bowel or bladder dysfunction. Currently rates her pain to be a 6 out of 10. States she is only used Percocet twice so far today. She currently describes her low lower back pain is across the waistline/sacroiliac notches. Allergies Allergy/AdvReac Type Severity Reaction Status Date / Time codeine Allergy Mild GI UPSET Verified 01/29/22 15:59 sulfamethoxazole Allergy Mild GI UPSET Verified 01/29/22 15:59 trimethoprim Allergy Mild GI UPSET Verified 01/29/22 15:59 amoxicillin Allergy Unknown "BAD FOR Verified 01/29/22 15:59 LIVER BECAUSE I HAVE LIVER PROBLEMS" Bactrim Allergy Unknown GI UPSET Verified 10/08/17 15:30 clavulanic acid Allergy Unknown "BAD FOR Verified 01/29/22 15:59 LIVER BECAUSE I HAVE LIVER PROBLEMS" methotrexate Allergy Unknown "BAD FOR Verified 01/29/22 15:59 MY LIVER BECAUSE I HAVE LIVER PROBLEMS" Methotrexate Analogues Allergy Unknown "told Verified 01/29/22 15:59 never to take d/t liver disease" pseudoephedrine AdvReac Intermediate IRRITABILIT Verified 01/29/22 15:59 Y adhesive AdvReac Mild ADHESIVE Verified 01/29/22 15:59 TAPE = REDNESS fentanyl AdvReac Mild Vomiting Verified 01/29/22 15:59 Home Medications Medication Instructions Recorded Confirmed Type hydroxyzine HCl 25 mg tablet 25 mg PO QID PRN 11/06/18 01/29/22 History methylcellulose (with sugar) oral 0.5 tbsp PO QAM 11/06/18 01/29/22 History powder (Citrucel (sucrose)) pyridoxine (vitamin B6) 100 mg 100 mg PO HS 11/06/18 01/29/22 History tablet (Vitamin B-6) inhalational spacing device #1 ea 08/04/19 01/29/22 Rx (LiteAire MDI Chamber) Domperidone 10 mg PO BID 09/15/19 01/29/22 History cetirizine 10 mg tablet (Zyrtec) 10 mg PO QAM 09/15/19 01/29/22 History cholecalciferol (vitamin D3) 125 5,000 unit PO 3XWK 09/15/19 01/29/22 History mcg (5,000 unit) tablet (Vitamin D3) benzonatate 100 mg capsule 100 mg PO Q8H PRN #90 cap 05/10/20 01/29/22 Rx fluocinonide 0.05 % topical cream 1 applic TOPICAL BID PRN 06/14/20 01/29/22 History albuterol sulfate 90 mcg/actuation 2 puff INH Q4H PRN #18 gm 12/06/20 01/29/22 Rx aerosol inhaler (ProAir HFA) estradiol 1 g VAGINAL 2XWK g 04/26/21 01/29/22 History montelukast 10 mg tablet 10 mg PO PM #90 tab 04/27/21 01/29/22 Rx clotrimazole-betamethasone 1 1 applic TOPICAL .qhs #45 g 06/09/21 01/29/22 Rx %-0.05 % topical cream diazepam 2 mg tablet 2 mg PO .COMPLEX PRN #2 tab 08/18/21 01/29/22 Rx escitalopram oxalate 10 mg tablet 10 mg PO QAM #90 tab 09/06/21 01/29/22 Rx dexlansoprazole 30 mg 30 mg PO QAM #90 cap 11/13/21 01/29/22 Rx capsule,biphase delayed release (Dexilant) fluticasone furoate 200 1 inh INH QAM #3 inhaler 01/16/22 01/29/22 Rx mcg-vilanterol 25 mcg/dose inhalation powder (Breo Ellipta) Patient History Medical History Asthma COUGH VARIANT; rare use of PRN inhaler Cirrhosis BORDERLINE. NON ALCOHOLIC.; follows with [facility] GERD (gastroesophageal reflux disease) Hiatal hernia History of malignant carcinoid tumor of bronchus and lung 2013 - treated surgically; no chemo/radiation History of supraventricular tachycardia s/p ablation Surgical History History of bowel resection r/t diverticular disease History of bronchoscopy RIGHT LOWER LOBE BIOPSY History of cardiac radiofrequency ablation [facility]. NO ISSUES SINCE. History of cholecystectomy LAP History of colonoscopy History of esophagogastroduodenoscopy (EGD) History of lobectomy of lung RIGHT (2012) AT [facility] History of oral surgery History of tonsillectomy Nausea and vomiting after administration of anesthetic agent S/P excision of lipoma Family History Sister Obesity Asthma Father Diabetes Coronary heart disease Squamous cell carcinoma Hypertension Mother TIA (transient ischemic attack) Breast cancer Hypertension Uterine cancer Family history of reaction to anesthesia difficulty waking Grandfather (Maternal) Parkinson disease Denies family history of Ovarian cancer Prostate cancer Myocardial infarction Colorectal cancer Social History Smoking Status: Never smoker Second Hand Exposure: Yes (CHILDHOOD); Hx Alcohol Use: Yes Alcohol type: wine Hx Substance Use: No Preferred Language: Russian Communication Ability: Effective Visual Impairment: No Limitations Hearing Ability: Normal 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 Beliefs That Will Affect Care: None marital status: Current Living Situation: Spouse current occupational status: retired Other Information That Helps Us Care for You: No Feels Safe at Home: Yes Safety Concerns: Feels Safe At This Time Childhood Exposure to Second-Hand Smoke: Yes Dental Care, Regularly: Yes Physical Activity Frequency: Does not Exercise Seatbelt Use: always Sunscreen Use: Yes (Ocassionally) Assistive Devices: None Assistive Devices Comment: contact for left eye only Review of Systems Review of Systems: All systems reviewed & are unremarkable except as noted in HPI & below Physical Exam Physical Exam: She is lying in bed. She is seen in conjunction with her . No acute distress Alert and oriented x3 Motor testing for 5/5r EHL, dorsiflexion, plantar function, quadriceps, hamstrings bilaterally She is able to rollover without assistance for further inspection of her thoracolumbar spine. Tenderness is across the left SI region No obvious lacerations or ecchymosis over the thoracolumbar spine Nontender across the thoracolumbar junction Results & Data ([facility]) Vital Signs (Past 12 Hours) Vital Signs Temp Pulse Pulse Resp BP Pulse Ox 01/31/22 14:51 36.7 C 64 20 96/62 L 94 01/31/22 11:07 36.8 C 65 20 119/75 93 01/31/22 07:52 36.8 C 62 20 122/73 91 01/31/22 07:00 67 Diagnostic Findings [place], [place] [phone] CT Scan Report Patient:CHRISTIN CERVANTES Admit Date:01/29/22 MR#:[id number] Address1:[address] [place] [address] Acct ID:[id number] Address2: Date:1955 [facility] Zip:[place] [address] Age:66 Location:ED Sex:F Room/Bed: Att Phy: Diagnosis:FALL Kamila Phy:Michael Mccloud MD Service Date:01/29/22 [facility] Phy: Interpreting Phy:Diallo PinaAdmit Phy: Ordering Phy:Jos Conklin DO cc: ~ ABDOMEN AND PELVIS CT WITH IV CONTRAST; CT LUMBAR SPINE WITH IV CONTRAST CT DOSE: 698.39 mGy.cm HISTORY: Acute abdominal and low back pain status post fall lower back pain s/p fall TECHNIQUE: Multiaxial CT images of the abdomen/pelvis and lumbar spine were performed following the IV administration of 94 cc of Optiray, A dose lowering technique was utilized adhering to the principles of ALARA. COMPARISON STUDY: CT abdomen pelvis 03/01/2021 FINDINGS: CT ABDOMEN/PELVIS: The imaged inferior cardiac chambers are mildly enlarged with mild coronary artery calcifications. Trace right pleural effusion. Mild bibasilar densities suggest atelectasis. Mild right hemidiaphragmatic elevation. No pneumatosis or pneumoperitoneum. The spleen is enlarged, 14.9 cm. Unremarkable pancreas and adrenal glands. Cholecystectomy. There is suggestion of hepatic steatosis. Mild marginal nodularity of the liver compatible with cirrhosis. Patency of the hepatic and portal veins. Symmetric enhancement of the kidneys. 3 mm nonobstructing calculus of the interpolar left kidney.. There are no ureteral calculi or hydronephrosis. Unremarkable urinary bladder. The uterus and adnexa are unremarkable. Atherosclerosis of the aorta without aneurysm. Borderline enlarged periportal and precaval lymph nodes are likely secondary to chronic liver disease. Small hiatal hernia. No bowel obstruction or bowel wall thickening. Prior partial sigmoid colon resection with colocolonic anastomosis. Extensive colonic diverticulosis without acute diverticulitis. Normal appendix. Small fat filled ventral abdominal wall hernias measure up to 2.3 cm. Degenerative changes of the spine, pelvis and hips. Acute fracture of the L2 vertebral body as below. There is a suggested segmentation anomaly involving the T7 vertebral body. LUMBAR SPINE: Demineralized appearance of the bones. Moderate L5-S1 intervertebral disc space narrowing with posterior disc osteophyte complex formations noted at T12-L1, L1- L2 and L5-S1. Moderate to severe multilevel facet arthrosis with mild spondylitic spurring. Acute fractures are noted involving the anterior and superior cortices at L2 with approximately 20% superior endplate compression. No retropulsion. Minimal paravertebral edema. No high-grade central canal stenosis identified. Sacrum and iliac bones appear intact. IMPRESSION: 1. Acute 20% superior endplate compression deformity of the L2 vertebral body with mild paravertebral edema. No retropulsion. 2. No acute solid organ injury. 3. Cirrhosis with suggestion of portal venous hypertension 4. 3 mm nonobstructing left renal calculus. 5. Trace right pleural effusion. 6. Chronic findings as above. ACT 112: Negative or not required by law. The above report was generated using voice recognition software. It may contain grammatical, syntax or spelling errors. Electronically signed by: Diallo Pina M.D. 01/29/2022 7:10 PM Dictated:01/29/221856 Transcribed: 01/29/221856 [place], [place] [phone] Magnetic Resonance Report Patient:CHRISTIN CERVANTES Admit Date:01/29/22 MR#:[id number] Address1:[address] [place] [address] Acct ID:[id number] Address2: Date:1955 [facility] Zip:[place] [address] Age:66 Location:2N Sex:F Room/Bed:[facility] Att Phy:Wilman Gurrola MD Diagnosis:BACK PAIN, L2 COMPRESSION FRACTURE Kamila Phy:Michael Mccloud MD Service Date:01/30/22 Fam Phy: Interpreting Phy:Pito Hathaway MDAdmit Phy:Brittany Abel DKanchanO. Ordering Phy:Wilman Gurrola MD cc: ~ MRI OF THE LUMBAR SPINE WITHOUT CONTRAST CLINICAL HISTORY: worsening lumbar pain, urinary retention COMPARISON STUDY: Lumbar spine MRI December 26, 2015. Lumbar spine CT January 29, 2022. TECHNIQUE: Utilizing a 1.5 Heather magnet and dedicated coil, multiplanar, multiecho imaging of the lumbar spine was performed without IV contrast. FINDINGS: For purposes of numbering on this exam, the L5-S1 disc space is assigned to axial image 27 of 30. Alignment of the lumbar spine is anatomic. Note is made of an acute compression fracture of the superior endplate of L2 with 20% loss of vertebral body height. There is no retropulsion. Fracture extends to the right pedicle. No additional lumbar spine fractures are noted. There is no intracanalicular mass or fluid collection. Conus terminates at the upper L1 level. Paravertebral soft tissues are unremarkable. No suspicious marrow replacement. L1-2: Small central disc protrusion is present. Central canal and neural foramen are patent. L2-3: There is no central canal or neural foraminal stenosis. L3-4: There is no central canal or neural foraminal stenosis. L4-5: There is a left foraminal annular tear with small disc protrusion. Central canal and neural foramen are patent. There is moderate facet arthrosis at this level. L5-S1: Moderate disc space narrowing is noted. Small central disc protrusion is present. Central canal and neural foramen are patent. IMPRESSION: 1. Acute L2 compression fracture with 20% loss of vertebral body height. Fracture extends into the right pedicle. No retropulsion. No additional lumbar spine fractures. 2. Mild multilevel degenerative disc disease and moderate facet arthrosis within the lumbar spine. No central canal and neural foraminal stenosis. ACT 112: Negative or not required by law. Electronically signed by: Pito Hathaway M.D. 01/30/2022 5:52 PM Dictated:01/30/22 174 Transcribed: 01/30/22 174
[2022-01-31] MEDS: LIDOCAINE 5% 1 PATCH TD SCH (20:20)
[2022-01-31] MEDS: ENOXAPARIN INJ 40 MG/0.4 ML SYR SQ SCH (20:20)
[2022-01-31] MEDS: CHOLECALCIFEROL 5,000 UNITS 125 MCG TAB PO SCH (20:20)
[2022-01-31] MEDS: MONTELUKAST SODIUM 10 MG TABLET PO SCH (20:21)
[2022-01-31] MEDS: PYRIDOXINE HCL 50 MG TAB PO SCH (20:21)
[2022-02-01] MEDS: oxyCODONE HCL IR 5 MG TAB (IMMEDIATE RELEASE) PO PRN ×4 (00:13→19:30)
[2022-02-01 06:41] LABS: BUN Creatinine Ratio 18.5 (10-20); Calcium 9.2 mg/dl (8.5-10.1); Creatinine Clr Calc Pharmacy 88.8 ml/min; Est GFR (African American) 107.2 ml/min; Est GFR (Non-African American) 92.5 ml/min; Magnesium 1.9 mg/dl (1.7-2.4); Potassium 3.9 mmol/L (3.5-5.1)
[2022-02-01 06:48] LABS: Basophils # (auto) 0.02 K/uL (0-0.2); Basophils % (auto) 0.3 %; Eosinophils # (auto) 0.21 K/uL (0-0.5); Eosinophils % (auto) 2.7 %; Hematocrit (blood only) 39.8 % (37-47); Hemoglobin 13.5 g/dL (12.0-16.0); Immature Granulocytes # (auto) 0.03 K/uL (0.00-0.02); Immature Granulocytes % (auto) 0.4 %; Lymphocytes # (auto) 2.32 K/uL (1.2-3.4); Lymphocytes % (auto) 30.2 %; Mean Corpuscular Hemoglobin 29.2 pg (25-34); Mean Corpuscular Hgb Conc 33.9 g/dL (32-36); Mean Platelet Volume 9.6 fL (7.4-10.4); Monocytes % (auto) 7.8 %; Neutrophils # (auto) 4.49 K/uL (1.4-6.5); Neutrophils % (auto) 58.6 %; Platelet Count 174 K/uL (130-400); RDW Coefficient of Variation 14.9 % (11.5-14.5); RDW Standard Deviation 47.1 fL (36.4-46.3); Red Blood Count 4.63 M/uL (4.2-5.4); White Blood Count 7.67 K/uL (4.8-10.8)
[2022-02-01] MEDS: CETIRIZINE HCL 10 MG TABLET PO SCH (08:08)
[2022-02-01] MEDS: PANTOprazole 40 MG TAB PO SCH (08:08)
[2022-02-01] MEDS: CALCIUM 600MG + VIT D 400 IU TAB PO SCH ×2 (08:08→20:05)
[2022-02-01] MEDS: ESCITALOPRAM OXALATE 10 MG TAB PO SCH (08:08)
[2022-02-01] MEDS: FLUTICASONE/VILANTEROL 200/25MCG 14 PUFFS/INHALER INH SCH (08:09)
[2022-02-01] MEDS: CALCITONIN SALMON NA 200 IU/AC 3.7 ML BTL SCH (08:09)
[2022-02-01] MEDS: ACETAMINOPHEN 500 MG TAB PO SCH ×3 (08:10→20:05)
[2022-02-01] MEDS: METHYLCELLULOSE POWDER 454 GM JAR PO SCH (08:14)
[2022-02-01] MEDS: SENNOSIDES 8.8 MG/5 ML UDC PO SCH (15:21)
--- NOTE | 2022-02-01 18:06 | Hospitalist Progress Note ---
Date of Service February 01, 2022 Assessment & Plan (1) Pain aggravated by changing postions: Plan: Acute pain secondary to L endplate compression fracture without retropulsion from mechanical fall - Scheduled tylenol, Voltaren topical Miacalcin nasal spray - Lidocaine patch to lower back now -As needed Ultram, oxycodone, IV morphine - K pad for heat to lower back -rigid brace applied with variable resuluts, maybe urinary retention in afternoon 02/01/22 (2) Lumbar compression fracture: Plan: As above - s/p fall - 20% superior endplate compression deformity of the L2 vertebral body with mild paravertebral edema. No retropulsion. - As above CT-Lspine: Demineralized appearance of the bones. Moderate L5-S1 intervertebral disc space narrowing with posterior disc osteophyte complex formations noted at T12-L1, L1-L2 and L5-S1. Moderate to severe multilevel facet arthrosis with mild spondylitic spurring. Acute fracture Multimodal pain control and orthopedic consult oversight (3) Asthma: Plan: Asthma with cough syndrome -Stable - TAMI, BREO or in house equivalent- may need spacer - Continue Zyrtec (4) Non-alcoholic cirrhosis: Plan: Follows with GI and hepatology in [place] - annual MRI for transplant protocol - EGD performed 07/04 with no change - Monitor with addition of Narcotics/Tylenol and NSAID dosing at this time (5) Esophageal varices: Plan: Grade I as above folllows with GI - no acute need at this time (6) History of supraventricular tachycardia: Plan: Ablation hx - no BB (7) GERD (gastroesophageal reflux disease): Plan: Will add PPI while adding NSAIDS (8) S/P rotator cuff surgery: Plan: No acute needs (9) Anxiety and depression: Plan: Continue dexlansoprazole, escitalopram, Plan: may consider rehab for PT/OT Admission and Anticipated Discharge Date Admission Date: January 31, 2022 Subjective This patient having a varible experience with pain control. Did have some initial syncope and pain medications were reduced but she could not tolerate pain today. Given the fact that she is on multimodal pain control without good relief including scheduled Tylenol Miacalcin and various strength opiates, conult orthopedic spine surgery who recommended trial of torso brace and not immediately proceed to kyphoplasty pt with also variable response to this brace for pain control and comfort Review of Systems Review of Systems: Moderate to severe distress and fatigue no headache, no visual changes no speech or swallowing issues no chest pain, pressure or palpitations no shortness of breath, cough or wheezes no abdominal pain, nausea or vomiting, has had constipation no dysuria, hematuria or frequency urinary incontinence no focal joint pain or swelling Significant lumbar back pain, without CVA tenderness or radicular pain no bruising, bleeding or rashes no focal signs of weakness or numbness or altered sensation no complaints of anxiety or depression.. Physical Exam Physical Exam: The patient appeared well nourished and normally developed. Vital signs as documented. Head exam is normocephalic atraumatic Neck is without JVD, thyromegaly, or carotid bruits. Lungs are clear to auscultation, no focal loss of breath sounds Cardiac exam, Rhythm is regular.. No murmurs, rubs or gallops. Abdominal exam reveals normal bowel sounds, soft non tender, no masses Extremities are nonedematous and both pedal pulses are present Significant lumbar back pain without radiation to movement Neurologic exam is alert and oriented, no focal loss of strength or sensation Skin is without bruises or rashes Psychologically is without concerns for anxiety or depression.. Results & Data Results & Data ([facility]) Vital Signs (Past 12 Hours) Vital Signs Temp Pulse Pulse Resp BP Pulse Ox 02/01/22 15:27 82 02/01/22 15:21 97.5 F L 81 18 114/73 92 02/01/22 11:17 98.2 F 78 18 113/71 93 02/01/22 09:38 69 02/01/22 07:24 98.4 F 71 20 128/78 92 PG Care Time/CCT Total # of Minutes Spent Total Time Spent with Patient: Total time spent is greater than 50% in coordination of care (as documented) at patient's floor/unit and/or counseling patient: Coding Level of Care Code 39406 Subseq Hosp Care Lvl 2 Diagnoses Pain aggravated by changing postions R52 Lumbar compression fracture S32.000A Asthma J45.909 Non-alcoholic cirrhosis K74.60 Esophageal varices I85.00 History of supraventricular tachycardia Z86.79 GERD (gastroesophageal reflux disease) K21.9 S/P rotator cuff surgery Z98.890 Anxiety and depression F41.9; F32.A
[2022-02-01] MEDS: LIDOCAINE 5% 1 PATCH TD SCH (20:10)
[2022-02-01] MEDS: MONTELUKAST SODIUM 10 MG TABLET PO SCH (20:11)
[2022-02-01] MEDS: PYRIDOXINE HCL 50 MG TAB PO SCH (20:11)
[2022-02-01] MEDS: ENOXAPARIN INJ 40 MG/0.4 ML SYR SQ SCH (20:12)
[2022-02-02] MEDS: oxyCODONE HCL IR 5 MG TAB (IMMEDIATE RELEASE) PO PRN ×2 (00:48→05:52)
[2022-02-02] MEDS: CALCITONIN SALMON NA 200 IU/AC 3.7 ML BTL SCH (08:46)
[2022-02-02] MEDS: ACETAMINOPHEN 500 MG TAB PO SCH ×2 (08:46→13:09)
[2022-02-02] MEDS: METHYLCELLULOSE POWDER 454 GM JAR PO SCH (08:47)
[2022-02-02] MEDS: FLUTICASONE/VILANTEROL 200/25MCG 14 PUFFS/INHALER INH SCH (08:47)
[2022-02-02] MEDS: CETIRIZINE HCL 10 MG TABLET PO SCH (08:47)
[2022-02-02] MEDS: CALCIUM 600MG + VIT D 400 IU TAB PO SCH (08:47)
[2022-02-02] MEDS: SENNOSIDES 8.8 MG/5 ML UDC PO SCH (08:47)
[2022-02-02] MEDS: ESCITALOPRAM OXALATE 10 MG TAB PO SCH (08:47)
[2022-02-02] MEDS: PANTOprazole 40 MG TAB PO SCH (08:47)
[2022-02-02] MEDS: ONDANSETRON INJ 2 MG/ML 2 ML VIAL IV PRN (11:05)
[2022-02-02 11:26] VITALS: TEMP 97.9; O2SAT 91
[2022-02-02] MEDS: traMADol HCL 50 MG TABLET PO PRN (13:14)
[2022-02-02 13:24] VITALS: BP 114/73; PULSE 64
--- NOTE | 2022-02-02 17:17 | Discharge Summary ---
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 Patient comes to the EMD today after slipping down the steps where she fell back on her back against the steps. She feels like she landed more on her back than on her buttocks. In the EMD the patient had routine labs performed, she had CT scan of her lumbar spine, abd/pelvis, and plain films of her lumbar spine and hi p/pelvis. Her CT scan revealed- endplate compression deformity of the L2 vertebral body with mild paravertebral edema. No retropulsion. She was given Morphine for her pain x 2 doses by the EMD and was unable to control her pain. The hospitalist service was then consulted for admission. The patient was seen and laying flat with with her legs flexed as her position of comfort. The patient points to most of her pain in the right lower back approximate to her SI joint. She was able to straighten her legs and has no radicular symptoms and sensation is intact down her lower legs. Patient will be observed overnight for multimodal pain control. Principal Diagnosis L2 compression fracture urinary retention Discharge Exam The patient appeared well Vital signs as documented. Neurologic exam is alert and oriented, spontaneously moves all extremities Skin is without bruises or rashes Psychologically is without concerns for anxiety or depression. Discharge Data Allergies Allergy/AdvReac Type Severity Reaction Status Date / Time codeine Allergy Mild GI UPSET Verified 01/29/22 15:59 sulfamethoxazole Allergy Mild GI UPSET Verified 01/29/22 15:59 trimethoprim Allergy Mild GI UPSET Verified 01/29/22 15:59 amoxicillin Allergy Unknown "BAD FOR Verified 01/29/22 15:59 LIVER BECAUSE I HAVE LIVER PROBLEMS" Bactrim Allergy Unknown GI UPSET Verified 10/08/17 15:30 clavulanic acid Allergy Unknown "BAD FOR Verified 01/29/22 15:59 LIVER BECAUSE I HAVE LIVER PROBLEMS" methotrexate Allergy Unknown "BAD FOR Verified 01/29/22 15:59 MY LIVER BECAUSE I HAVE LIVER PROBLEMS" Methotrexate Analogues Allergy Unknown "told Verified 01/29/22 15:59 never to take d/t liver disease" pseudoephedrine AdvReac Intermediate IRRITABILIT Verified 01/29/22 15:59 Y adhesive AdvReac Mild ADHESIVE Verified 01/29/22 15:59 TAPE = REDNESS fentanyl AdvReac Mild Vomiting Verified 01/29/22 15:59 Consultations 01/29/22 19:33 ED Decision to Admit Stat 01/31/22 13:34 Consult Orthopedic Surgery Routine Ordered Studies 01/29/22 17:38 CT abd pelvis IV con only Stat CT lumbar spine w con Stat 01/30/22 12:52 MR lumbar spine wo con Urgent Hospital Course (1) Pain aggravated by changing postions: Acute pain secondary to L endplate compression fracture without re tropulsion from mechanical fall - Scheduled tylenol, Voltaren topical Miacalcin nasal spray - Lidocaine patch to lower back now -As needed Ultram, oxycodone, - -rigid brace applied with variable results, urinary retention in afternoon 02/01/22 transition to acute rehab with vigilance to watch urinary retention and reinforce brace use (2) Lumbar compression fracture: As above - s/p fall - 20% superior endplate compression deformity of the L2 vertebral body with mild paravertebral edema. No retropulsion. - As above CT-Lspine: Demineralized appearance of the bones. Moderate L5-S1 intervertebral disc space narrowing with posterior disc osteophyte complex formations noted at T12-L1, L1-L2 and L5-S1. Moderate to severe multilevel facet arthrosis with mild spondylitic spurring. Acute fracture Multimodal pain control and orthopedic consult oversight, consider follow up with DR Amaro if not improving (3) Asthma: Asthma with cough syndrome -Stable - TAMI, BREO or in house equivalent- may need spacer - Continue Zyrtec (4) Non-alcoholic cirrhosis: Follows with GI and hepatology in [place] - annual MRI for transplant protocol - EGD performed 07/04 with no change - (5) Esophageal varices: Grade I as above jhons with GI - no acute need at this time (6) History of supraventricular tachycardia: Ablation hx - no BB (7) GERD (gastroesophageal reflux disease): (8) S/P rotator cuff surgery: No acute needs (9) Anxiety and depression: Continue dexlansoprazole, escitalopram, rehab for PT/OT Total Time Total Time Spent Total Time Spent (In Minutes): It required less than 30 minutes to prepare this patient for discharge Discharge Plan Discharge Items Patient Disposition: Transfer Inpatient Rehab Fac Reason For Visit: BACK PAIN, L2 COMPRESSION FRACTURE Discharge Diagnosis: L2 compression fracture Activity: Per Instructions section Activity Comment: per PT/OT recommendation Non-emergency contact: Primary Care Provider Call non-emergency contact if: your symptoms worsen Follow-up/Referrals: Michael Mccloud MD [Primary Care Provider] - Diet: Regular Addtl Attending Provider Instructions: A compression fracture happens when the front part of a spinal bone breaks and collapses. A fall or other type of injury can cause it. A minor injury or moving the wrong way can cause a break if you have thin or brittle bones (osteoporosis). These types of breaks will heal in 8 to 10 weeks. You will need rest and pain medicines. Your doctor may recommend physiotherapy. Some doctors recommend that certain people with compression fractures wear braces. Your doctor also may treat thin or brittle bones. You may need surgery if you have lasting pain or if the bone presses on the spinal cord or nerves. You heal best when you take good care of yourself. Eat a variety of healthy foods, and don't smoke. Addtl It Support Engineer Provider Instructions: Pt is having intermittent urinary retention, maybe secondary to pain medicines, consider checking PVR and intermittently st cath if needed Pending Studies at Discharge: No Stand-Alone Forms: [facility] Skilled Items Patient informed of condition?: Yes DNR: No Discharge Level of Care: Acute rehab Communicable Disease: No Discharge Prognosis: Stable Lines: None Urinary Catheter: No Medications and DC Order Prescriptions: New tramadol 50 mg Tablet 50 mg PO Q8H PRN (Reason: pain (scale score 1-3)) Qty: 30 RF: 0 acetaminophen [Tylenol Extra Strength] 500 mg Tablet 1,000 mg PO TID Qty: 90 RF: 0 oxycodone 5 mg Tablet 5 mg PO Q4H PRN (Reason: pain) Qty: 30 RF: 0 Caltrate 600-D Plus Minerals 600 mg calcium- 800 unit-50 mg Tablet 1 tab PO BID Qty: 30 RF: 0 sennosides 17.2 mg tablet 17.2 mg PO DAILY Qty: 30 RF: 0 calcitonin (salmon) 200 unit/actuation [place],Non-Aerosol 1 spray NA DAILY Qty: 1 RF: 0 lidocaine 5 % Adhesive Patch,Medicated 1 patch transdermal QPM Qty: 10 RF: 0 Continued albuterol sulfate [ProAir HFA] 90 mcg/actuation HFA aerosol inhaler 2 puff INH Q4H PRN (Reason: cough or shortness of breath) Qty: 18 RF: 1 montelukast 10 mg tablet 10 mg PO PM Qty: 90 RF: 3 diazepam 2 mg tablet 2 mg PO .COMPLEX PRN (Reason: anxiety) Qty: 2 RF: 0 escitalopram oxalate 10 mg tablet 10 mg PO QAM Qty: 90 RF: 3 Dexilant 30 mg capsule,biphase delayed releas 30 mg PO QAM Qty: 90 RF: 3 Breo Ellipta 200-25 mcg/dose blister with device 1 inh INH QAM Qty: 3 RF: 1 benzonatate 100 mg capsule 100 mg PO Q8H PRN (Reason: cough) Qty: 90 RF: 3 estradiol 0.01 % (0.1 mg/gram) cream 1 g vaginal 2XWK RF: 0 (DME) [employer] MDI Chamber spacer See Dose Instructions .ROUTE .MEDSUPPLY Qty: 1 RF: 0 clotrimazole-betamethasone 1-0.05 % cream 1 applic topical .qhs Qty: 45 RF: 11 pyridoxine (vitamin B6) [Vitamin B-6] 100 mg Tablet 100 mg PO HS RF: 0 Citrucel (sucrose) Powder 0.5 tbsp PO QAM RF: 0 fluocinonide 0.05 % Cream 1 applic TOPICAL BID PRN (Reason: ud) RF: 0 cetirizine [Zyrtec] 10 mg Tablet 10 mg PO QAM RF: 0 cholecalciferol (vitamin D3) [Vitamin D3] 125 mcg (5,000 unit) Tablet 5,000 unit PO 3XWK RF: 0 Domperidone 10 mg PO BID RF: 0 Discontinued hydroxyzine HCl 25 mg Tablet 25 mg PO QID PRN (Reason: Itching) RF: 0 Discharge Orders: Discharge Order (Routine); Ordered 02/02/22 Ordered By: Arley Lema Admission Data Admit Date/Time: 01/31/22 14:51 Attending Provider: Arley Lema Admit Provider: Brittany Abel Primary Care Provider: Michael Mccloud Other Providers: Brittany Abel ; Hardy Amaro ; [facility] Other Interventions: Discharge Summary Assessment (RN) Last Done: 02/02/22 13:20 Coding Level of Care Code D/C DAY MANAGEMENT <30 MINS Diagnoses Pain aggravated by changing postions R52 Lumbar compression fracture S32.000A Asthma J45.909 Non-alcoholic cirrhosis K74.60 Esophageal varices I85.00 History of supraventricular tachycardia Z86.79 GERD (gastroesophageal reflux disease) K21.9 S/P rotator cuff surgery Z98.890 Anxiety and depression F41.9; F32.A
== END 2022-02-02 14:30 | DRG 552 ==
LOC: ED 15:21 → 3N 15:21 → SUATTDRO 20:10 → 3N 22:06 → 2N 01-30 01:05